=== PATIENT | male | born 1980 ===

== ENCOUNTER 2016-12-17 19:39 | Inpatient (IN) | payer MEDICAID, OTHER ==
[2016-12-17] MEDS ORDERED: Sodium Chloride 0.9% 1,000 ML IV STA (20:41)
--- NOTE | 2016-12-17 20:44 | ED PDOC ---
Addendum entered and electronically signed by Omaira Henriquez PA-C 22:05: Addendum Addendum: 12/17/16 22:04 COMP resulted with hyponatremia, IVF running. Hypokalemia as well. potassium administered and Mag ordered Original Note: HPI: SOB/CHF/COPD Time Seen by Provider: 12/17/16 20:10 Chief Complaint (Nursing): Shortness Of Breath Chief Complaint (Provider): SOB History Per: Patient Additional Complaint(s): 36 yo male, PMH of HIV who has been off his medications for 4-5 years now, presents to ED with multiple somatic complaints. Pt reports overall increased weakness, fatigue for the last week, with intermittent episodes of SOB x 5 days. Pt was noted to have 101 fever in triage and was unaware. Pt denies any abdominal pain, nausea, vomiting, cough or congestion. Pt admits to drinking alcohol daily as well. no Smoking or Drug use. Pt reports he last saw his PMD, Dr. Nugent, ~ 4-5 years ago, has not seen a doctor since Past Medical History Reviewed: Nursing Documentation, Vital Signs Vital Signs: Last Vital Signs Temp 101 F H 12/17/16 21:06 Pulse 110 H 12/17/16 19:49 Resp 16 12/17/16 19:49 BP 125/69 12/17/16 19:49 Pulse Ox 100 12/17/16 20:45 - Medical History PMH: HIV - Surgical History Surgical History: No Surg Hx - Family History Family History: States: Unknown Family Hx - Living Arrangements Living Arrangements: With Friends/Others - Social History Current smoker - smoking cessation education provided: No Alcohol: > 2 Drinks/Day Drugs: Denies - Allergies Allergies/Adverse Reactions: Allergies Allergy/AdvReac Type Severity Reaction Status Date / Time No Known Allergies Allergy Verified 12/17/16 19:49 Curb-65 Severity Score - CURB-65 Severity Score Confusion: No Bun >19mg/dl (>7mmol/L): No Respiratory Rate greater than/equal to 30: No Systolic BP <90 or Diastolic BP less than/equal 60mmHg: No Age >64: No Curb-65 Score: 0 Percentage 30-day mortality: 0.6% Wells Criteria for PE - Wells Criteria for Pulmonary Embolism Clinical Signs and Symptoms of DVT: Yes P.E is #1 Diagnosis, or Equally Likely: No Heart Rate >100: Yes Immobilization at least 3 days;Surgery previous 4 weeks: No Previous, objectively diagnosed PE or DVT: No Hemoptysis: No Malignancy w/treatment within 6 months, or palliative: No Total Score: 4.5 Review of Systems ROS Statement: Except As Marked, All Systems Reviewed And Found Negative Constitutional: Positive for: Fever, Weakness, Malaise Respiratory: Positive for: Shortness of Breath Physical Exam - Reviewed Nursing Documentation Reviewed: Yes Vital Signs Reviewed: Yes - Physical Exam Appears: Positive for: Well, Non-toxic, No Acute Distress Head Exam: Positive for: ATRAUMATIC, NORMAL INSPECTION, NORMOCEPHALIC Skin: Positive for: Normal Color, Warm, DRY Eye Exam: Positive for: EOMI, Normal appearance, PERRL ENT: Positive for: Normal ENT Inspection Neck: Positive for: Normal, Painless ROM Cardiovascular/Chest: Positive for: Regular Rate, Rhythm Respiratory: Positive for: CNT, Normal Breath Sounds Gastrointestinal/Abdominal: Positive for: Normal Exam, Bowel Sounds, Soft Back: Positive for: Normal Inspection Extremity: Positive for: Normal ROM Neurologic/Psych: Positive for: Alert, Oriented - Laboratory Results Result Diagrams: 12/17/16 21:15 - ECG O2 Sat by Pulse Oximetry: 100 Medical Decision Making Medical Decision Making: Pt placed on property assessment monitor, IV access established and diagnostics ordered Acetaminophen ordered for 101 temp. P: 110 CXR: NAD, as read by JESSICA UA resulted with WBC 24 CBC with WBC 10.3 Lactate resulted 2.6. Report ordered for 2 hours. COMP pending at 21:54 IV Rocephin ordered for UTI. Pt meets criteria for severe sepsis. Case discussed with ED MD, Dr. Napoles, who agrees with admission at this time. Case discussed with hospitalist, Dr. Marinelli, who presented to see and evaluate Pt for admission. Disposition - Clinical Impression Clinical Impression: Urinary tract infection, Severe sepsis - Patient ED Disposition Is Patient to be Admitted: Yes - Disposition Disposition Time: 21:57 Condition: STABLE - POA Present On Arrival: None
[2016-12-17 21:14] LABS: RBC URINE 7 /hpf (0-3); URINE BACTERIA RARE (<OCC); URINE BILIRUBIN NEGATIVE (NEGATIVE); URINE BLOOD SMALL (NEGATIVE); URINE COLOR AMBER (YELLOW); URINE GLUCOSE (UA) NEG (Normal); URINE KETONE 20 mg/dL (NEGATIVE); URINE LEUKOCYTE ESTERASE NEG Leu/uL (Negative); URINE PROTEIN 100 mg/dL (NEGATIVE); WBC URINE 24 /hpf (0-5)
[2016-12-17 21:26] LABS: VENOUS BLOOD GAS PCO2 46 mmHg (40-60)
[2016-12-17 21:32] LABS: BASO % 0.2 % (0.0-2.0); EOS % 0.5 % (0.0-4.0); HEMATOCRIT 39.3 % (35.0-51.0); LYMPH # 1.6 K/uL (1.0-4.3); LYMPH % 15.2 % (20.0-40.0); MEAN CELL VOLUME 94.2 fl (80.0-94.0); MEAN CORPUSCULAR HEMOGLOBIN 32.3 pg (27.0-31.0); MEAN CORPUSCULAR HGB CONC 34.2 g/dL (33.0-37.0); MEAN PLATELET VOLUME 8.2 fl (7.2-11.7); MONO % 9.8 % (0.0-10.0); NEUT # 7.6 K/uL (1.8-7.0); NEUT % 74.3 % (50.0-75.0); RED CELL DISTRIBUTION WIDTH 13.5 % (11.5-14.5); WHITE BLOOD COUNT 10.3 K/uL (4.8-10.8)
[2016-12-17 21:48] LABS: GLUCOSE,RANDOM 137 mg/dL (75-110); TOTAL PROTEIN 8.2 G/DL (6.3-8.2)
[2016-12-17 21:49] LABS: ALB/GLOB RATIO 0.8 (1.0-2.1); ALCOHOL SERUM < 10 mg/dl (0-10); ALKALINE PHOSPHATASE 101 U/L (38-126); ALT/SGPT 139 U/L (21-72); AST/SGOT 178 U/L (17-59); BILIRUBIN,TOTAL 1.2 mg/dl (0.2-1.3); BLOOD UREA NITROGEN 10 mg/dl (9-20); CALCIUM 6.1 mg/dL (8.4-10.2); CARBON DIOXIDE 27 mmol/L (22-30); CHLORIDE 85 mmol/L (98-107); GFR AFRICAN-AMERICAN > 60; POTASSIUM 3.3 MMOL/L (3.6-5.0)
[2016-12-17 21:52] LABS: SODIUM 120 mmol/l (132-148)
[2016-12-17] MEDS ORDERED: cefTRIAXone (Rocephin) 1 gm Inj ONE (22:00)
[2016-12-17] MEDS ORDERED: Potassium Chl 40 mEq in D5-NS 1,000 ML IV SCH (22:15)
[2016-12-17] MEDS ORDERED: Sodium Chloride 0.9% 1,000 ML IV SCH (22:15)
[2016-12-17] MEDS ORDERED: Sodium Chloride 0.9% 50 ML IV ONE (23:03)
[2016-12-17] MEDS ORDERED: Iodixanol 320 MG/ML 100 ML BOTTLE IV ONE (23:03)
--- NOTE | 2016-12-17 23:14 | CP.PCM.HP ---
History of Present Illness - History of Present Illness History of Present Illness: CC: suprapubic discomfort, back pain, SOB, fatigue/malaise HPI: This is a 36 y/o male with MHx significant for HIV who is not on any medications x past 4-5 years who presents with several days of multiple complaints. He states he has had several days of suprapubic/abd pain, back pain , n/v, SOB, fatigue and malaise. Had also had a fever of 101 earlier today accompanied by chills. No other complaints. ROS: 14 systems reviewed, negative other than HPI MHx: HIV+, not on medications SHx: None Allergies: NKDA Medications: None Family Hx: No relevant family hx Social hx: Lives by himself, drinks 5 drinks almost daily (last drink about 5-6 days ago), denies tobacco or other drugs Present on Admission - Present on Admission Any Indicators Present on Admission: No Past Patient History - Past Social History Alcohol: > 2 Drinks/Day Drugs: Denies - CARDIAC Hx Hypertension: Yes - PULMONARY Hx Respiratory Disorders: No - HEMATOLOGICAL/ONCOLOGICAL Hx Human Immunodeficiency Virus (HIV): Yes - PSYCHIATRIC Hx Anxiety: Yes Hx Substance Use: Yes - ANESTHESIA Hx Anesthesia: No Meds Allergies/Adverse Reactions: Allergies Allergy/AdvReac Type Severity Reaction Status Date / Time No Known Allergies Allergy Verified 12/17/16 19:49 Physical Exam - Constitutional Appears: No Acute Distress - Head Exam Head Exam: ATRAUMATIC, NORMOCEPHALIC - Eye Exam Eye Exam: EOMI, PERRL - ENT Exam ENT Exam: Mucous Membranes Dry - Neck Exam Neck exam: Positive for: Full Rom - Respiratory Exam Respiratory Exam: Clear to Auscultation Bilateral, NORMAL BREATHING PATTERN - Cardiovascular Exam Cardiovascular Exam: Tachycardia, +S1, +S2 - GI/Abdominal Exam GI & Abdominal Exam: Normal Bowel Sounds, Soft, Tenderness Additional comments: mild suprapubic tenderness - Extremities Exam Extremities exam: Positive for: full ROM, pedal edema Additional comments: LLE with mild edema and some TTP - Neurological Exam Neurological exam: Alert, CN II-XII Intact, Oriented x3 - Psychiatric Exam Psychiatric exam: Normal Affect, Normal Mood - Skin Skin Exam: Dry, Warm Results - Vital Signs Recent Vital Signs: Last Vital Signs Temp 100.7 F H 12/17/16 23:00 Pulse 98 H 12/17/16 23:00 Resp 20 12/17/16 23:00 BP 119/72 12/17/16 23:00 Pulse Ox 98 12/17/16 23:00 - Labs Result Diagrams: 12/17/16 21:15 12/17/16 21:15 Labs: Laboratory Results - last 24 hr 12/17/16 22:04 Magnesium 1.9 - EKG Data EKG Interpreted by: Myself EKG shows normal: Sinus rhythm Rate: Tachycardia - EKG Data EKG comments: IVCD with RBBB pattern; Prolonged QTc - Imaging and Cardiology CT scan - chest Status: Pending Chest x-ray Status: Image reviewed by me (No obvious findings) Assessment & Plan (1) UTI (urinary tract infection) Assessment and Plan: 36 y/o male who is HIV+ (off medications) who comes in with multiple constitutional symptoms as well as UTI/Sepsis, hypo-Na, and SOB/LE Edema. 1) Sepsis/UTI -Admit tele -Repeat lactiate -Continue IVF -Cont Ceftriaxone -Tylenol for fevers -f/u cultures 2) Hyponatremia -- unclear etiology or duration; possibly 2/2 HIV -Continue hydration with NS and repeat BMP in AM -Serum and urine Osms, ULytes, and TSH to start w/u 3) SOB/LE edema/tachycardia -- D dimer positive, getting CT Angio to r/o PE 4) DVT PPx -- SQ Lovenox for now Status: Acute (2) Sepsis Status: Acute (3) Hyponatremia Status: Acute (4) SOB (shortness of breath) Status: Acute (5) HIV (human immunodeficiency virus infection) Status: Acute (6) DVT prophylaxis Status: Acute
[2016-12-18 06:39] LABS: BLOOD UREA NITROGEN 8 mg/dl (9-20); CARBON DIOXIDE 26 mmol/L (22-30); CHLORIDE 90 mmol/L (98-107); GFR AFRICAN-AMERICAN > 60; GLUCOSE,RANDOM 147 mg/dL (75-110); POTASSIUM 3.3 MMOL/L (3.6-5.0); SODIUM 124 mmol/l (132-148)
[2016-12-18 06:46] LABS: BASO % 0.1 % (0.0-2.0); CALCIUM 5.6 mg/dL (8.4-10.2); EOS # 0.1 K/uL (0.0-0.7); EOS % 0.6 % (0.0-4.0); HEMATOCRIT 34.6 % (35.0-51.0); LYMPH # 1.4 K/uL (1.0-4.3); LYMPH % 15.5 % (20.0-40.0); MEAN CORPUSCULAR HGB CONC 35.1 g/dL (33.0-37.0); MEAN PLATELET VOLUME 8.2 fl (7.2-11.7); MONO # 0.8 K/uL (0.0-0.8); MONO % 8.8 % (0.0-10.0); NRBC % 0.1 % (0.0-0.0); RED CELL DISTRIBUTION WIDTH 13.5 % (11.5-14.5); WHITE BLOOD COUNT 9.3 K/uL (4.8-10.8)
[2016-12-18] MEDS ORDERED: Calcium Gluconate 4.65 mEq/10 ml Inj IV ONE (07:49)
[2016-12-18] MEDS ORDERED: Iohexol 240 (50 ml) PO ONE (07:54)
[2016-12-18] MEDS ORDERED: Potassium CL 10 MEQ/50 ML 50 ML IVPB SCH ×2 (08:00→09:14)
[2016-12-18] MEDS ORDERED: Sodium Chloride 0.9% 1,000 ML IV SCH (08:03)
[2016-12-18 08:33] LABS: ALB/GLOB RATIO 0.8 (1.0-2.1); BILIRUBIN,TOTAL 0.8 mg/dl (0.2-1.3); MAGNESIUM 1.8 MG/DL (1.6-2.3); PHOSPHOROUS 1.4 mg/dl (2.5-4.5); TOTAL PROTEIN 6.8 G/DL (6.3-8.2)
--- NOTE | 2016-12-18 08:42 | CT ---
PROCEDURE: Scribe prelim HISTORY: elevated dimer, SOB COMPARISON: Chest x-ray same day TECHNIQUE: Axial computed tomography images were obtained of the chest in the pulmonary arterial phase of enhancement. Coronal and sagittal reformatted images were created and reviewed. Intravenous contrast dose: 100 cc Radiation dose: Total exam DLP = 384 mGy-cm. FINDINGS: PULMONARY ARTERIES: Unremarkable. No pulmonary embolism. AORTA: No acute findings. No thoracic aortic aneurysm. LUNGS: Unremarkable. No nodule, mass or pulmonary consolidation. PLEURAL SPACES: Unremarkable. No effusion or pneuomothorax. HEART: Unremarkable. No cardiomegaly. No significant pericardial effusion. LYMPH NODES: No lymphadenopathy. BONES, CHEST WALL: Unremarkable. No fracture or destructive lesion OTHER FINDINGS: Images of the upper abdomen reveal evidence of moderate inflammatory change in phlegmon adjacent to the body and tail of the pancreas with some additional phlegmon extending into the left anterior para renal space and adjacent to the spleen. Remainder the pancreas is not identified on the images. Findings are consistent with moderate pancreatitis without pseudocyst formation. Moderate fatty infiltration of the liver is noted. No perihepatic collections are seen. No intrahepatic ductal dilatation is seen. Small hiatal hernia is appreciated. IMPRESSION: No CT scan evidence of pulmonary embolism. No evidence of focal infiltrate or pleural effusion. Moderate pancreatitis although incompletely evaluated on this examination. This agrees with preliminary report.
[2016-12-18] MEDS ORDERED: Thiamine 100 mg/ml Inj IV SCH (09:00)
[2016-12-18] MEDS ORDERED: Influenza Vaccine(5yr & older) 0.5 ML/45 MCG IM ONE (09:00)
[2016-12-18] MEDS ORDERED: Pneumococcal 23-Valent Vaccine IM ONE (09:00)
--- NOTE | 2016-12-18 09:11 | CP.PCM.PN ---
Subjective - Date & Time of Evaluation Date of Evaluation: 12/18/16 Time of Evaluation: 09:00 - Subjective Subjective: Pt is febrile + epigastric pain radiating to the back denies CP no SOB at present no nausea nor vomiting no dysuria no diarrhea no headache no urethral discharge Objective - Vital Signs/Intake and Output Vital Signs (last 24 hours): Temp Pulse Resp BP Pulse Ox 100.1 F H 102 H 20 119/73 98 12/18/16 05:00 12/18/16 05:00 12/18/16 05:00 12/18/16 05:00 12/18/16 05:00 - Medications Medications: Current Medications Acetaminophen (Tylenol 325mg Tab) 650 mg PO Q6 PRN PRN Reason: Fever >100.4 F Calcium Gluconate (Calcium Gluconate) 4.6 meq IV ONCE ONE Stop: 12/18/16 07:50 Enoxaparin Sodium (Lovenox) 40 mg SC DAILY [facility] PRN Reason: Protocol Potassium Chloride (Potassium Cl 10meq/50ml Sterile Water) 50 mls @ 50 mls/hr IVPB Q1 [facility] Stop: 12/18/16 10:59 Piperacillin Sod/Tazobactam (Sod 3.375 gm/ Sodium Chloride) 100 mls @ 100 mls/ hr IVPB Q6 [facility] Folic Acid 1 mg/ Sodium (Chloride) 100.2 mls @ 60 mls/hr IVPB DAILY [facility] Sodium Chloride (Sodium Chloride 0.9%) 1,000 mls @ 200 mls/hr IV .Q5H [facility] Stop: 12/19/16 00:09 Pantoprazole Sodium (Protonix Inj) 40 mg IVP DAILY [facility] Thiamine HCl (Vitamin B1 Inj) 100 mg IV DAILY [facility] - Labs Labs: 12/18/16 06:02 12/18/16 06:02 - Constitutional Appears: Non-toxic, No Acute Distress - Head Exam Head Exam: ATRAUMATIC, NORMAL INSPECTION, NORMOCEPHALIC - Eye Exam Eye Exam: EOMI, Normal appearance, PERRL Pupil Exam: NORMAL ACCOMODATION - ENT Exam ENT Exam: Mucous Membranes Dry, Normal External Ear Exam Additional comments: no oral thrush - Neck Exam Neck Exam: Full ROM. absent: Meningismus - Respiratory Exam Respiratory Exam: NORMAL BREATHING PATTERN. absent: Rales, Wheezes, Respiratory Distress - Cardiovascular Exam Cardiovascular Exam: REGULAR RHYTHM, +S1, +S2 - GI/Abdominal Exam GI & Abdominal Exam: Distended (sl distended), Soft, Tenderness, Normal Bowel Sounds - Back Exam Back Exam: Full ROM. absent: CVA tenderness (L), CVA tenderness (R), paraspinal tenderness, vertebral tenderness - Neurological Exam Neurological Exam: Alert, Awake, CN II-XII Intact, Oriented x3 Neuro motor strength exam: Left Upper Extremity: 5, Right Upper Extremity: 5, Left Lower Extremity: 5, Right Lower Extremity: 5 - Psychiatric Exam Psychiatric exam: Normal Affect, Normal Mood - Skin Skin Exam: Dry, Normal Color, Warm Assessment and Plan (1) Pancreatitis, alcoholic, acute Status: Acute (2) Sepsis Status: Suspected (3) Hyponatremia Status: Acute (4) HIV (human immunodeficiency virus infection) Status: Chronic (5) Fever Status: Acute (6) Hypokalemia Status: Acute (7) Alcohol abuse Status: Chronic (8) DVT prophylaxis Status: Acute - Assessment and Plan (Free Text) Assessment: 36 y/o gent with hx of HIV + not on HAART , hx of Alcohol abuse came in because of fever, abd pain, nausea /vomiting. (1) Pancreatitis, alcoholic, acute Status: Acute Pt came in with abd pain mostly epigastric radiating to the back, hx of Alcoholsim CT scan of chest showed : Pancreatitis changes, no necrosis nor pseudocyst NPO Pain mgt with IV Morphine IVF hydration GI consult: Dr Minor CT of abd check Lipase (2) Sepsis Status: Suspected Pt has fever , abd pain and elevated Lactate empirically start IV Zosyn will consult ID: Dr Leyva (3) Hyponatremia Status: Acute ? sec to HIV Setum and Urine Osm, urine lytes (4) HIV (human immunodeficiency virus infection) Status: Chronic pt states that when he was on HAART 3 yrs ago , his viral load was undetectable however he stopped all his meds and never followed up at [facility] HIV clinic check CD4 Ct and Viral load (5) Fever Status: Acute ? etiology sec to Pancreatitis, HIV vs UTI Blood c/s, Urine c/s empirically start IV Zosyn UA shows WBC 24 ? UTI (6) Alcohol Abuse last drink was 6 days ago no signs of withdrawal Ativan prn start IV Thiamine and FA (7) Hypokalemia, Hypophosphatemia Status: Acute Kphos, Kcl runs (8) DVT prophylaxis Status: Acute Lovenox
[2016-12-18] MEDS: Enoxaparin 40 mg Syringe SC SCH (09:14)
[2016-12-18] MEDS ORDERED: Potassium Phosphate 15 MMOLE in Dextrose 5% In Water 250 ML IV ONE (09:15)
[2016-12-18] MEDS ORDERED: Piperacillin/Tazobact 3.375 GM in Sodium Chloride 0.9% 100 ML IVPB SCH (10:00)
[2016-12-18] MEDS ORDERED: Calcium Gluconate 4.6 MEQ in Sodium Chloride 0.9% 100 ML IV ONE (10:15)
[2016-12-18] MEDS: Sodium Chloride 0.9% 1,000 ML IV SCH ×2 (10:21→21:29)
--- NOTE | 2016-12-18 10:30 | RAD ---
HISTORY: CP COMPARISON: No prior. TECHNIQUE: Chest PA and lateral FINDINGS: LUNGS: No active pulmonary disease. PLEURA: No significant pleural effusion identified. No pneumothorax apparent. CARDIOVASCULAR: Normal. OSSEOUS STRUCTURES: No significant abnormalities. VISUALIZED UPPER ABDOMEN: Normal. OTHER FINDINGS: None. IMPRESSION: No active disease.
--- NOTE | 2016-12-18 11:44 | CP.PCM.CON ---
<Dionna Meza - Last Filed: 12/18/16 14:17> History of Present Illness - History of Present Illness History of Present Illness: Gastroenterology Fellow/PGY4 Consult Note 36 year old male with history of HIV not on HAART therapy presenting with weakness and shortness of breath. Patient notes epigastric pain for one week with radiation to back, present pain scale 5/10. On Tuesday, the pain was 9/10 with loss of appetite and associated nausea, bloating, and vomiting four times a day of clear liquid. Admits to watery diarrhea twice a day a week for a week that last occurred four days ago. Since the pain onset he had one formed stool and no further bowel habit for the last three days that he attributes to not eating for a week due to the epigastric pain. He notes generalized malaise for one month. Notes shortness of breath and chills for one week. Denies indigestion, heartburn, acid reflux, constipation, melena, hematochezia, sick contacts, recent travel, recent antibiotics, confusion, or weight loss. Admits to AKILI during [place] that he took a friend's antibiotics for two weeks. Since this time he hasn't felt himself with generalized weakness. He has not followed with his PCP or infectious disease in a few years due to insurance. States previous HIV for thirteen years that he states CD4 count was previously normal. No prior EGD or colonoscopy. He had eggs for breakfast prior to NPO order and notes exacerbation of epigastric pain and denies vomiting. 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 Surgery- none Review of Systems - Review of Systems Review of Systems: A 12-point review of systems negative except for as above Past Patient History - Past Medical History & Family History Past Medical History?: Yes - Past Social History Smoking Status: Former Smoker - CARDIAC Hx Hypertension: Yes - PULMONARY Hx Respiratory Disorders: No - HEMATOLOGICAL/ONCOLOGICAL Hx Human Immunodeficiency Virus (HIV): Yes - MUSCULOSKELETAL/RHEUMATOLOGICAL Hx Falls: No - PSYCHIATRIC Hx Substance Use: Yes - ANESTHESIA Hx Anesthesia: No Meds Allergies/Adverse Reactions: Allergies Allergy/AdvReac Type Severity Reaction Status Date / Time No Known Allergies Allergy Verified 12/17/16 19:49 - Medications Medications: Current Medications Acetaminophen (Tylenol 325mg Tab) 650 mg PO Q6 PRN PRN Reason: Fever >100.4 F Last Admin: 12/18/16 09:13 Dose: 650 mg Enoxaparin Sodium (Lovenox) 40 mg SC DAILY [facility] PRN Reason: Protocol Last Admin: 12/18/16 09:14 Dose: 40 mg Piperacillin Sod/Tazobactam (Sod 3.375 gm/ Sodium Chloride) 100 mls @ 100 mls/ hr IVPB Q6 [facility] Last Admin: 12/18/16 10:23 Dose: 100 mls/hr Folic Acid 1 mg/ Sodium (Chloride) 100.2 mls @ 60 mls/hr IVPB DAILY [facility] Sodium Chloride (Sodium Chloride 0.9%) 1,000 mls @ 200 mls/hr IV .Q5H [facility] Stop: 12/19/16 00:09 Last Admin: 12/18/16 10:21 Dose: 200 mls/hr Potassium Phosphate 15 mmole/ (Dextrose) 255 mls @ 84 mls/hr IV .Q3H3M [facility] Stop: 12/18/16 12:17 Thiamine HCl 100 mg/ Sodium (Chloride) 101 mls @ 101 mls/hr IV DAILY [facility] Morphine Sulfate (Morphine) 2 mg IVP Q4 PRN PRN Reason: Pain, moderate (4-7) Pantoprazole Sodium (Protonix Inj) 40 mg IVP DAILY [facility] Last Admin: 12/18/16 11:13 Dose: 40 mg Physical Exam - Constitutional Appears: Non-toxic, No Acute Distress - Head Exam Head Exam: ATRAUMATIC, NORMOCEPHALIC - Eye Exam Eye Exam: EOMI, PERRL Pupil Exam: PERRL. absent: Miosis, Mydriatic - ENT Exam ENT Exam: Mucous Membranes Moist, Normal Oropharynx - Neck Exam Neck exam: Positive for: Full Rom, Normal Inspection - Respiratory Exam Respiratory Exam: Clear to Auscultation Bilateral. absent: Rales, Rhonchi, Wheezes - Cardiovascular Exam Cardiovascular Exam: RRR, +S1, +S2. absent: Gallop, Rubs - GI/Abdominal Exam GI & Abdominal Exam: Normal Bowel Sounds, Organomegaly, Soft, Tenderness. absent: Distended, Firm, Guarding, Rebound, Rigid Additional comments: epigastric tenderness to palpation, hepatosplenomegaly - Extremities Exam Extremities exam: Positive for: full ROM Additional comments: 1+LLE edema - Neurological Exam Neurological exam: Alert, Oriented x3 - Psychiatric Exam Psychiatric exam: Normal Affect, Normal Mood - Skin Skin Exam: Dry, Intact, Normal Color, Warm Results - Vital Signs Recent Vital Signs: Last Vital Signs Temp 101.6 F H 12/18/16 09:22 Pulse 97 H 12/18/16 09:22 Resp 20 12/18/16 09:22 BP 121/75 12/18/16 09:22 Pulse Ox 97 12/18/16 09:22 - Labs Result Diagrams: 12/18/16 06:02 12/18/16 06:02 Labs: Laboratory Results - last 24 hr 12/17/16 12/18/16 12/18/16 22:04 01:14 06:02 WBC 9.3 RBC 3.68 L Hgb 12.1 Hct 34.6 L MCV 94.0 MCH 33.0 H MCHC 35.1 RDW 13.5 Plt Count 244 MPV 8.2 Neut % (Auto) 75.0 Lymph % (Auto) 15.5 L Pope % (Auto) 8.8 Eos % (Auto) 0.6 Baso % (Auto) 0.1 Neut # 7.0 Lymph # 1.4 Pope # 0.8 Eos # 0.1 Baso # 0.0 Sodium 124 L Potassium 3.3 L Chloride 90 L Carbon Dioxide 26 Anion Gap 11 BUN 8 L Creatinine 0.7 L Est GFR ( Amer) > 60 Est GFR (Non-Af Amer) > 60 Random Glucose 147 H Lactic Acid 0.7 Calcium 5.6 L* Phosphorus Magnesium 1.9 Total Bilirubin Direct Bilirubin AST ALT Alkaline Phosphatase Lactate Dehydrogenase Total Protein Albumin Globulin Albumin/Globulin Ratio Lipase 12/18/16 07:45 WBC RBC Hgb Hct MCV MCH MCHC RDW Plt Count MPV Neut % (Auto) Lymph % (Auto) Pope % (Auto) Eos % (Auto) Baso % (Auto) Neut # Lymph # Pope # Eos # Baso # Sodium Potassium Chloride Carbon Dioxide Anion Gap BUN Creatinine Est GFR ( Amer) Est GFR (Non-Af Amer) Random Glucose Lactic Acid Calcium Phosphorus 1.4 L Magnesium 1.8 Total Bilirubin 0.8 Direct Bilirubin 0.4 AST 126 H D ALT 114 H Alkaline Phosphatase 80 Lactate Dehydrogenase 1605 H Total Protein 6.8 Albumin 3.0 L Globulin 3.8 Albumin/Globulin Ratio 0.8 L Lipase 571 H Assessment & Plan - Assessment and Plan (Free Text) Assessment: 36 year old male with history of HIV with medication and follow up noncompliance presenting with weakness, epigastric pain, and shortness of breath. CT PE protocol negative for pulmonary embolism but showing concern for pancreatic body and tail inflammation. No prior EGD or colonoscopy. Sepsis 2/2 UTI Pancreatitis Diarrhea Transaminitis Generalized weakness HIV Plan: > abdominal U/S-no gallstones, biliary dilatations >pending Hepatitis panel >pending stool infectious workup: C diff, stool culture, Cryptosporidium, Giardia, O&P >pending blood and urine cultures >ordered PT/INR >elevated dimer, LDH, PE ruled out, splenomegaly >ordered Doppler U/S >daily LFTs >aggressive IVFs >NPO >supportive care: pain control, antiemetics >pending CT A/P >primary team managing dyselectrolytemia >pending HIV, CD4 count >Infectious disease consult- follow up recommendations <Donna Minor MD - Last Filed: 12/19/16 10:20> Meds - Medications Medications: Current Medications Acetaminophen (Tylenol 325mg Tab) 650 mg PO Q6 PRN PRN Reason: Fever >100.4 F Last Admin: 12/18/16 09:13 Dose: 650 mg Enoxaparin Sodium (Lovenox) 40 mg SC DAILY [facility] PRN Reason: Protocol Last Admin: 12/18/16 09:14 Dose: 40 mg Folic Acid 1 mg/ Sodium (Chloride) 100.2 mls @ 60 mls/hr IVPB DAILY [facility] Last Admin: 12/19/16 10:05 Dose: 60 mls/hr Thiamine HCl 100 mg/ Sodium (Chloride) 101 mls @ 101 mls/hr IV DAILY [facility] Last Admin: 12/19/16 10:05 Dose: 101 mls/hr Morphine Sulfate (Morphine) 2 mg IVP Q4 PRN PRN Reason: Pain, moderate (4-7) Pantoprazole Sodium (Protonix Inj) 40 mg IVP DAILY [facility] Last Admin: 12/19/16 10:06 Dose: 40 mg Results - Vital Signs Recent Vital Signs: Last Vital Signs Temp 99.5 F 12/19/16 05:02 Pulse 93 H 12/19/16 05:02 Resp 20 12/19/16 05:02 BP 126/80 12/19/16 05:02 Pulse Ox 97 12/19/16 05:02 - Labs Result Diagrams: 12/19/16 08:00 12/19/16 08:00 Labs: Laboratory Results - last 24 hr 12/18/16 12/19/16 15:50 08:00 WBC 14.8 H D RBC 3.76 L Hgb 12.1 Hct 35.8 MCV 95.2 H MCH 32.2 H MCHC 33.8 RDW 13.7 Plt Count 338 MPV 7.3 Neut % (Auto) 79.1 H Lymph % (Auto) 12.4 L Pope % (Auto) 7.4 Eos % (Auto) 1.0 Baso % (Auto) 0.1 Neut # 11.7 H Lymph # 1.8 Pope # 1.1 H Eos # 0.1 Baso # 0.0 PT 13.3 H INR 1.28 H Sodium 131 L Potassium 3.9 Chloride 98 Carbon Dioxide 23 Anion Gap 14 BUN 6 L Creatinine 0.7 L Est GFR ( Amer) > 60 Est GFR (Non-Af Amer) > 60 Random Glucose 100 Calcium 6.6 L Phosphorus 2.2 L Total Bilirubin 0.8 AST 103 H ALT 104 H Alkaline Phosphatase 99 Total Protein 7.5 Albumin 3.3 L Globulin 4.2 H Albumin/Globulin Ratio 0.8 L Attending/Attestation - Attestation I have personally seen and examined this patient.: Yes I have fully participated in the care of the patient.: Yes I have reviewed all pertinent clinical information: Yes Notes (Text): 12/19/16 10:16 patient seen and examined with GI fellow yesterday on rounds. The H & P reflects findings of 12/18/16. Essentially this is a 36 year old male with history of HIV with medication and follow up noncompliance presenting with weakness, epigastric pain, and shortness of breath. CT PE protocol negative for pulmonary embolism but showing concern for pancreatic body and tail inflammation. No prior EGD or colonoscopy. Sonogram negative for biliary obstruction. Pending stool infectious work up. Pending dedicated CT pancreatic protocol with IV contrast. IVF and supportive care. Needs to establish care for HIV treatment
--- NOTE | 2016-12-18 13:14 | US ---
HISTORY: pancreatitis COMPARISON: CT scan yesterday TECHNIQUE: Sonographic evaluation of the abdomen. FINDINGS: LIVER: Measures 20 cm. Diffuse increased echogenicity of the liver parenchyma. No mass. No intrahepatic bile duct dilatation. GALLBLADDER: Slightly contracted but without gallstones or wall thickening. No pericholecystic fluid. COMMON BILE DUCT: Measures 4 mm. No stones. No dilatation. PANCREAS: Head of the pancreas is obscured by bowel gas. There appears to be enlargement and heterogeneous echogenicity involving the body of the pancreas. Tail of the pancreas was also obscured by bowel gas and better appreciated on the CT scan performed yesterday. Small amount of peripancreatic fluid extending towards the left side of the abdomen is suspected. RIGHT KIDNEY: Measures 12cm. Normal echogenicity. No calculus, mass, or hydronephrosis. LEFT KIDNEY: Measures 14cm. Normal echogenicity. No calculus, mass, or hydronephrosis. SPLEEN: Mildly enlarged measuring 13.4 centimeters in length. No focal splenic mass is noted. AORTA: No aneurysmal dilatation. IVC: Unremarkable. OTHER FINDINGS: None. IMPRESSION: Findings consistent with pancreatitis with enlarged pancreas although the pancreas is limited in its evaluation due to overlying bowel gas. Probable mild peripancreatic inflammatory changes extending towards the left side of the abdomen. Enlarged fatty liver. No evidence of gallstones or bile duct dilatation.
--- NOTE | 2016-12-18 13:44 | CP.PCM.CON ---
History of Present Illness - History of Present Illness History of Present Illness: Infectious Disease Consultation Note- Asked to see this patient at the request of for fever and pancreatitis. HPI- Pt. is a 36 y/o male with pmh of HIV not on HAART, ETOH abuse who was admitted with c/o several days of not feeling well including feeling weak and abdominal pain mainly in midepigastric region and nausea and vomiting, denies any diarrhea. denies any cough, denies any sob, denies any chest pain. denies any dysurea. Pt. states he has had this kind of abdominal pain in the past and he thinks it' s from his pancreas inflammation secondary to his ETOh use. he denies any change in his diet, denies any recent travel. He states he feels better since admission and no vomiting today. He also sattes he does not see HIV doctor and is not on any HAART meds and has been noncompliant with this. MHx: HIV+, not on medications SHx: None Allergies: NKDA Medications: None Family Hx: No relevant family hx Social hx: Lives by himself, drinks 5 drinks almost daily (last drink about 5-6 days ago), denies tobacco or other drugs Review of Systems - Review of Systems Review of Systems: see HPI please. Past Patient History - Past Medical History & Family History Past Medical History?: Yes - Past Social History Smoking Status: Former Smoker Alcohol: > 2 Drinks/Day Drugs: Denies Home Situation {Lives}: Alone - CARDIAC Hx Cardiac Disorders: No - PULMONARY Hx Respiratory Disorders: No - NEUROLOGICAL Hx Neurological Disorder: No - HEENT Hx HEENT Problems: No - RENAL Hx Chronic Kidney Disease: No - ENDOCRINE/METABOLIC Hx Endocrine Disorders: No - HEMATOLOGICAL/ONCOLOGICAL Hx Human Immunodeficiency Virus (HIV): Yes - MUSCULOSKELETAL/RHEUMATOLOGICAL Hx Falls: No - PSYCHIATRIC Hx Substance Use: Yes - ANESTHESIA Hx Anesthesia: No Meds Allergies/Adverse Reactions: Allergies Allergy/AdvReac Type Severity Reaction Status Date / Time No Known Allergies Allergy Verified 12/17/16 19:49 - Medications Medications: Current Medications Acetaminophen (Tylenol 325mg Tab) 650 mg PO Q6 PRN PRN Reason: Fever >100.4 F Last Admin: 12/18/16 09:13 Dose: 650 mg Enoxaparin Sodium (Lovenox) 40 mg SC DAILY TREY PRN Reason: Protocol Last Admin: 12/18/16 09:14 Dose: 40 mg Piperacillin Sod/Tazobactam (Sod 3.375 gm/ Sodium Chloride) 100 mls @ 100 mls/ hr IVPB Q6 [facility] Last Admin: 12/18/16 10:23 Dose: 100 mls/hr Folic Acid 1 mg/ Sodium (Chloride) 100.2 mls @ 60 mls/hr IVPB DAILY [facility] Last Admin: 12/18/16 12:28 Dose: 60 mls/hr Sodium Chloride (Sodium Chloride 0.9%) 1,000 mls @ 200 mls/hr IV .Q5H [facility] Stop: 12/19/16 00:09 Last Admin: 12/18/16 10:21 Dose: 200 mls/hr Thiamine HCl 100 mg/ Sodium (Chloride) 101 mls @ 101 mls/hr IV DAILY [facility] Morphine Sulfate (Morphine) 2 mg IVP Q4 PRN PRN Reason: Pain, moderate (4-7) Pantoprazole Sodium (Protonix Inj) 40 mg IVP DAILY [facility] Last Admin: 12/18/16 11:13 Dose: 40 mg Physical Exam - Constitutional Appears: Non-toxic, No Acute Distress - Head Exam Head Exam: ATRAUMATIC - Eye Exam Eye Exam: EOMI, PERRL - ENT Exam Additional comments: dry oral mucosa - Neck Exam Neck exam: Positive for: Full Rom - Respiratory Exam Respiratory Exam: Clear to Auscultation Bilateral, NORMAL BREATHING PATTERN - Cardiovascular Exam Cardiovascular Exam: RRR, +S1, +S2 - GI/Abdominal Exam Additional comments: somewhat distended, + BS No tenderness to palpation No guarding, no rebound No CVA tenderness b/l - Extremities Exam Extremities exam: Positive for: normal inspection - Neurological Exam Neurological exam: Alert, Oriented x3 Results - Vital Signs Recent Vital Signs: Last Vital Signs Temp 98.3 F 12/18/16 10:13 Pulse 97 H 12/18/16 09:22 Resp 20 12/18/16 09:22 BP 121/75 12/18/16 09:22 Pulse Ox 97 12/18/16 09:22 - Labs Result Diagrams: 12/18/16 06:02 12/18/16 06:02 Labs: Laboratory Results - last 24 hr 12/17/16 12/18/16 12/18/16 22:04 01:14 06:02 WBC 9.3 RBC 3.68 L Hgb 12.1 Hct 34.6 L MCV 94.0 MCH 33.0 H MCHC 35.1 RDW 13.5 Plt Count 244 MPV 8.2 Neut % (Auto) 75.0 Lymph % (Auto) 15.5 L [place] % (Auto) 8.8 Eos % (Auto) 0.6 Baso % (Auto) 0.1 Neut # 7.0 Lymph # 1.4 [place] # 0.8 Eos # 0.1 Baso # 0.0 Sodium 124 L Potassium 3.3 L Chloride 90 L Carbon Dioxide 26 Anion Gap 11 BUN 8 L Creatinine 0.7 L Est GFR ( Amer) > 60 Est GFR (Non-Af Amer) > 60 Random Glucose 147 H Lactic Acid 0.7 Calcium 5.6 L* Phosphorus Magnesium 1.9 Total Bilirubin Direct Bilirubin AST ALT Alkaline Phosphatase Lactate Dehydrogenase Total Protein Albumin Globulin Albumin/Globulin Ratio Lipase 12/18/16 07:45 WBC RBC Hgb Hct MCV MCH MCHC RDW Plt Count MPV Neut % (Auto) Lymph % (Auto) [place] % (Auto) Eos % (Auto) Baso % (Auto) Neut # Lymph # [place] # Eos # Baso # Sodium Potassium Chloride Carbon Dioxide Anion Gap BUN Creatinine Est GFR ( Amer) Est GFR (Non-Af Amer) Random Glucose Lactic Acid Calcium Phosphorus 1.4 L Magnesium 1.8 Total Bilirubin 0.8 Direct Bilirubin 0.4 AST 126 H D ALT 114 H Alkaline Phosphatase 80 Lactate Dehydrogenase 1605 H Total Protein 6.8 Albumin 3.0 L Globulin 3.8 Albumin/Globulin Ratio 0.8 L Lipase 571 H Laboratory Results - last 72 hr 12/17/16 12/17/16 12/17/16 06:02 20:50 21:15 WBC 10.3 RBC 4.17 L Hgb 13.5 Hct 39.3 MCV 94.2 H MCH 32.3 H MCHC 34.2 RDW 13.5 Plt Count 260 MPV 8.2 Neut % (Auto) 74.3 Lymph % (Auto) 15.2 L [place] % (Auto) 9.8 Eos % (Auto) 0.5 Baso % (Auto) 0.2 Neut # 7.6 H Lymph # 1.6 [place] # 1.0 H Eos # 0.0 Baso # 0.0 D-Dimer, Quantitative 13.10 H pO2 VBG pH VBG pCO2 VBG HCO3 VBG Total CO2 VBG O2 Sat (Calc) VBG Base Excess VBG Potassium Glucose Lactate FiO2 Sodium 120 L* Potassium 3.3 L Chloride 85 L Carbon Dioxide 27 Anion Gap 11 BUN 10 Creatinine 0.7 L Est GFR ( Amer) > 60 Est GFR (Non-Af Amer) > 60 Random Glucose 137 H Serum Osmolality 261 L Lactic Acid Calcium 6.1 L Phosphorus Magnesium Total Bilirubin 1.2 Direct Bilirubin AST 178 H ALT 139 H Alkaline Phosphatase 101 Lactate Dehydrogenase Troponin I 0.0130 Total Protein 8.2 Albumin 3.7 Globulin 4.5 H Albumin/Globulin Ratio 0.8 L Lipase TSH 3rd Generation 2.31 Venous Blood Potassium Urine Color Carmen Urine Clarity Slighty-cloudy Urine pH 6.0 Ur Specific [place] 1.019 Urine Protein 100 Urine Glucose (UA) Neg Urine Ketones 20 Urine Blood Small Urine Nitrate Negative Urine Bilirubin Negative Urine Urobilinogen 2.0 Ur Leukocyte Esterase Neg Urine RBC (Auto) 7 H Urine Microscopic WBC 24 H Ur Squamous Epith Cells < 1 Urine Bacteria Rare Urine Opiates Screen Negative Urine Methadone Screen Negative Ur Barbiturates Screen Negative Ur Phencyclidine Scrn Negative Ur Amphetamines Screen Negative U Benzodiazepines Scrn Negative U Oth Cocaine Metabols Negative U Cannabinoids Screen Negative Alcohol, Quantitative < 10 12/17/16 12/17/16 12/18/16 21:27 22:04 01:14 WBC RBC Hgb Hct MCV MCH MCHC RDW Plt Count MPV Neut % (Auto) Lymph % (Auto) [place] % (Auto) Eos % (Auto) Baso % (Auto) Neut # Lymph # [place] # Eos # Baso # D-Dimer, Quantitative pO2 28 L VBG pH 7.40 VBG pCO2 46 VBG HCO3 26.0 VBG Total CO2 29.9 H VBG O2 Sat (Calc) 55.6 VBG Base Excess 3.0 H VBG Potassium 3.0 L Glucose 136 H Lactate 2.6 H FiO2 21.0 Sodium 123.0 L Potassium Chloride 88.0 L Carbon Dioxide Anion Gap BUN Creatinine Est GFR ( Amer) Est GFR (Non-Af Amer) Random Glucose Serum Osmolality Lactic Acid 0.7 Calcium Phosphorus Magnesium 1.9 Total Bilirubin Direct Bilirubin AST ALT Alkaline Phosphatase Lactate Dehydrogenase Troponin I Total Protein Albumin Globulin Albumin/Globulin Ratio Lipase TSH 3rd Generation Venous Blood Potassium 3.0 L Urine Color Urine Clarity Urine pH Ur Specific [place] Urine Protein Urine Glucose (UA) Urine Ketones Urine Blood Urine Nitrate Urine Bilirubin Urine Urobilinogen Ur Leukocyte Esterase Urine RBC (Auto) Urine Microscopic WBC Ur Squamous Epith Cells Urine Bacteria Urine Opiates Screen Urine Methadone Screen Ur Barbiturates Screen Ur Phencyclidine Scrn Ur Amphetamines Screen U Benzodiazepines Scrn U Oth Cocaine Metabols U Cannabinoids Screen Alcohol, Quantitative 12/18/16 12/18/16 06:02 07:45 WBC 9.3 RBC 3.68 L Hgb 12.1 Hct 34.6 L MCV 94.0 MCH 33.0 H MCHC 35.1 RDW 13.5 Plt Count 244 MPV 8.2 Neut % (Auto) 75.0 Lymph % (Auto) 15.5 L [place] % (Auto) 8.8 Eos % (Auto) 0.6 Baso % (Auto) 0.1 Neut # 7.0 Lymph # 1.4 [place] # 0.8 Eos # 0.1 Baso # 0.0 D-Dimer, Quantitative pO2 VBG pH VBG pCO2 VBG HCO3 VBG Total CO2 VBG O2 Sat (Calc) VBG Base Excess VBG Potassium Glucose Lactate FiO2 Sodium 124 L Potassium 3.3 L Chloride 90 L Carbon Dioxide 26 Anion Gap 11 BUN 8 L Creatinine 0.7 L Est GFR ( Amer) > 60 Est GFR (Non-Af Amer) > 60 Random Glucose 147 H Serum Osmolality Lactic Acid Calcium 5.6 L* Phosphorus 1.4 L Magnesium 1.8 Total Bilirubin 0.8 Direct Bilirubin 0.4 AST 126 H D ALT 114 H Alkaline Phosphatase 80 Lactate Dehydrogenase 1605 H Troponin I Total Protein 6.8 Albumin 3.0 L Globulin 3.8 Albumin/Globulin Ratio 0.8 L Lipase 571 H TSH 3rd Generation Venous Blood Potassium Urine Color Urine Clarity Urine pH Ur Specific [place] Urine Protein Urine Glucose (UA) Urine Ketones Urine Blood Urine Nitrate Urine Bilirubin Urine Urobilinogen Ur Leukocyte Esterase Urine RBC (Auto) Urine Microscopic WBC Ur Squamous Epith Cells Urine Bacteria Urine Opiates Screen Urine Methadone Screen Ur Barbiturates Screen Ur Phencyclidine Scrn Ur Amphetamines Screen U Benzodiazepines Scrn U Oth Cocaine Metabols U Cannabinoids Screen Alcohol, Quantitative Accession No. : [id number] Patient Name / ID : RETA KEITH / [id number] Exam Date : 12/17/2016 20:56:43 ( Approved ) Study Comment : Sex / Age : M / 36Y Creator : Gilberto Guajardo Dictator : Gilberto Guajardo Movie Machine Operator : Corner Trimmer Operator : Gilberto Guajardo Approver2 : Report Date : 12/18/2016 10:28:58 My Comment : HISTORY: CP COMPARISON: No prior. TECHNIQUE: Chest PA and lateral FINDINGS: LUNGS: No active pulmonary disease. PLEURA: No significant pleural effusion identified. No pneumothorax apparent. CARDIOVASCULAR: Normal. OSSEOUS STRUCTURES: No significant abnormalities. VISUALIZED UPPER ABDOMEN: Normal. OTHER FINDINGS: None. IMPRESSION: No active disease. Accession No. : [id number] Patient Name / ID : RETA Lopez [id number] Exam Date : 12/17/2016 23:15:44 ( Approved ) Study Comment : Sex / Age : M / 36Y Creator : Gilberto Guajardo Dictator : Gilberto Guajardo Movie Machine Operator : Corner Trimmer Operator : Gilberto Guajardo Approver2 : Report Date : 12/18/2016 08:41:21 My Comment : PROCEDURE: Scribe prelim HISTORY: elevated dimer, SOB COMPARISON: Chest x-ray same day TECHNIQUE: Axial computed tomography images were obtained of the chest in the pulmonary arterial phase of enhancement. Coronal and sagittal reformatted images were created and reviewed. Intravenous contrast dose: 100 cc Radiation dose: Total exam DLP = 384 mGy-cm. FINDINGS: PULMONARY ARTERIES: Unremarkable. No pulmonary embolism. AORTA: No acute findings. No thoracic aortic aneurysm. LUNGS: Unremarkable. No nodule, mass or pulmonary consolidation. PLEURAL SPACES: Unremarkable. No effusion or pneuomothorax. HEART: Unremarkable. No cardiomegaly. No significant pericardial effusion. LYMPH NODES: No lymphadenopathy. BONES, CHEST WALL: Unremarkable. No fracture or destructive lesion OTHER FINDINGS: Images of the upper abdomen reveal evidence of moderate inflammatory change in phlegmon adjacent to the body and tail of the pancreas with some additional phlegmon extending into the left anterior para renal space and adjacent to the spleen. Remainder the pancreas is not identified on the images. Findings are consistent with moderate pancreatitis without pseudocyst formation. Moderate fatty infiltration of the liver is noted. No perihepatic collections are seen. No intrahepatic ductal dilatation is seen. Small hiatal hernia is appreciated. IMPRESSION: No CT scan evidence of pulmonary embolism. No evidence of focal infiltrate or pleural effusion. Moderate pancreatitis although incompletely evaluated on this examination. This agrees with preliminary report. Accession No. : [id number] Patient Name / ID : RETA KEITH / [id number] Exam Date : 12/18/2016 11:26:48 ( Approved ) Study Comment : Sex / Age : M / 36Y Creator : Gilberto Guajardo Dictator : Gilberto Guajardo Movie Machine Operator : Corner Trimmer Operator : Gilberto Guajardo Approver2 : Report Date : 12/18/2016 13:09:00 My Comment : HISTORY: pancreatitis COMPARISON: CT scan yesterday TECHNIQUE: Sonographic evaluation of the abdomen. FINDINGS: LIVER: Measures 20 cm. Diffuse increased echogenicity of the liver parenchyma. No mass. No intrahepatic bile duct dilatation. GALLBLADDER: Slightly contracted but without gallstones or wall thickening. No pericholecystic fluid. COMMON BILE DUCT: Measures 4 mm. No stones. No dilatation. PANCREAS: Head of the pancreas is obscured by bowel gas. There appears to be enlargement and heterogeneous echogenicity involving the body of the pancreas. Tail of the pancreas was also obscured by bowel gas and better appreciated on the CT scan performed yesterday. Small amount of peripancreatic fluid extending towards the left side of the abdomen is suspected. RIGHT KIDNEY: Measures 12cm. Normal echogenicity. No calculus, mass, or hydronephrosis. LEFT KIDNEY: Measures 14cm. Normal echogenicity. No calculus, mass, or hydronephrosis. SPLEEN: Mildly enlarged measuring 13.4 centimeters in length. No focal splenic mass is noted. AORTA: No aneurysmal dilatation. IVC: Unremarkable. OTHER FINDINGS: None. IMPRESSION: Findings consistent with pancreatitis with enlarged pancreas although the pancreas is limited in its evaluation due to overlying bowel gas. Probable mild peripancreatic inflammatory changes extending towards the left side of the abdomen. Enlarged fatty liver. No evidence of gallstones or bile duct dilatation. Assessment & Plan (1) Pancreatitis, alcoholic, acute Status: Acute (2) HIV (human immunodeficiency virus infection) Status: Acute (3) Fever Status: Acute - Assessment and Plan (Free Text) Assessment: A/P- 36 y/o male with HIV not on HAART who presented with abdominal pain and N/V and fever found to have pancreatitis without pseudocyst on CT . pt. most likely with acute alcoholic pancreatitis with h/o ETOH abuse and since no report of any psudocyst or necrotization on ct report and since there is normal wbc and no left shift ,no sign of sepsis and hence no indication for any IV abx at this time as this is secondary to alcohol pancreatitis and fever most likely secondary to the inflammatory process itself, for which the treatment is Iv hydration and pain management till inflammation resolved. if however, pt. develops any indication of sepsis such as rise in wbc or any necrotization on ct then would advise empiric gram neg abx at that time. plan- d/c IV abx. continues IV hydration and pain management as per primary team. check blood and urine cx. UA- negative. check CD4 and VL. HAART meds to be decided upon as outpatient once acute events are resolved andn once pt. establishes HIV care as outpatient. check hepatitis profile. All above d/w pt. at length and he verbalizes full understanding of all above. Thank you for allowing me to take part in the care of this patient.
[2016-12-19] MEDS: Sodium Chloride 0.9% 1,000 ML IV SCH (03:08)
[2016-12-19 09:13] LABS: BASO % 0.1 % (0.0-2.0); EOS # 0.1 K/uL (0.0-0.7); HEMATOCRIT 35.8 % (35.0-51.0); LYMPH # 1.8 K/uL (1.0-4.3); LYMPH % 12.4 % (20.0-40.0); MEAN CELL VOLUME 95.2 fl (80.0-94.0); MEAN CORPUSCULAR HEMOGLOBIN 32.2 pg (27.0-31.0); MEAN CORPUSCULAR HGB CONC 33.8 g/dL (33.0-37.0); MEAN PLATELET VOLUME 7.3 fl (7.2-11.7); MONO # 1.1 K/uL (0.0-0.8); MONO % 7.4 % (0.0-10.0); NEUT # 11.7 K/uL (1.8-7.0); NEUT % 79.1 % (50.0-75.0); RED CELL DISTRIBUTION WIDTH 13.7 % (11.5-14.5); WHITE BLOOD COUNT 14.8 K/uL (4.8-10.8)
--- NOTE | 2016-12-19 09:38 | CP.PCM.PN ---
Subjective - Date & Time of Evaluation Date of Evaluation: 12/19/16 Time of Evaluation: 09:30 - Subjective Subjective: Low grade fever 99.8 today no cough no SOB no CP abd pain better- minimal abd discomfort epigastric area- pt wants to strt eating - Liquid dit strted complains of bloatedness had diarrhea yesterday- no hx of recent abx use no N/V Objective - Vital Signs/Intake and Output Vital Signs (last 24 hours): Temp Pulse Resp BP Pulse Ox 99.5 F 93 H 20 126/80 97 12/19/16 05:02 12/19/16 05:02 12/19/16 05:02 12/19/16 05:02 12/19/16 05:02 - Medications Medications: Current Medications Acetaminophen (Tylenol 325mg Tab) 650 mg PO Q6 PRN PRN Reason: Fever >100.4 F Last Admin: 12/18/16 09:13 Dose: 650 mg Enoxaparin Sodium (Lovenox) 40 mg SC DAILY TREY PRN Reason: Protocol Last Admin: 12/18/16 09:14 Dose: 40 mg Folic Acid 1 mg/ Sodium (Chloride) 100.2 mls @ 60 mls/hr IVPB DAILY [facility] Last Admin: 12/18/16 12:28 Dose: 60 mls/hr Thiamine HCl 100 mg/ Sodium (Chloride) 101 mls @ 101 mls/hr IV DAILY [facility] Morphine Sulfate (Morphine) 2 mg IVP Q4 PRN PRN Reason: Pain, moderate (4-7) Pantoprazole Sodium (Protonix Inj) 40 mg IVP DAILY [facility] Last Admin: 12/18/16 11:13 Dose: 40 mg - Labs Labs: 12/18/16 06:02 12/18/16 06:02 PT 13.3 SECONDS (9.6-11.2) H 12/18/16 15:50 INR 1.28 (0.92-1.08) H 12/18/16 15:50 - Constitutional Appears: Non-toxic, No Acute Distress - Head Exam Head Exam: ATRAUMATIC, NORMAL INSPECTION, NORMOCEPHALIC - Eye Exam Eye Exam: EOMI, Normal appearance, PERRL Pupil Exam: NORMAL ACCOMODATION - ENT Exam ENT Exam: Mucous Membranes Dry, Normal External Ear Exam Additional comments: no oral thrush - Neck Exam Neck Exam: Full ROM. absent: Meningismus - Respiratory Exam Respiratory Exam: NORMAL BREATHING PATTERN. absent: Rales, Wheezes, Respiratory Distress - Cardiovascular Exam Cardiovascular Exam: REGULAR RHYTHM, +S1, +S2 - GI/Abdominal Exam GI & Abdominal Exam: Distended (sl distended), Soft, slight epigastric Tenderness, Normal Bowel Sounds - Back Exam Back Exam: Full ROM. absent: CVA tenderness (L), CVA tenderness (R), paraspinal tenderness, vertebral tenderness - Neurological Exam Neurological Exam: Alert, Awake, CN II-XII Intact, Oriented x3 Neuro motor strength exam: Left Upper Extremity: 5, Right Upper Extremity: 5, Left Lower Extremity: 5, Right Lower Extremity: 5 - Psychiatric Exam Psychiatric exam: Normal Affect, Normal Mood - Skin Skin Exam: Dry, Normal Color, Warm Assessment and Plan (1) Pancreatitis, alcoholic, acute Status: Acute (2) Sepsis Status: Suspected (3) Hyponatremia Status: Acute (4) HIV (human immunodeficiency virus infection) Status: Chronic (5) Fever Status: Acute (6) Hypokalemia Status: Acute (7) Alcohol abuse Status: Chronic (8) DVT prophylaxis Status: Acute - Assessment and Plan (Free Text) Assessment: 36 y/o gent with hx of HIV + not on HAART , hx of Alcohol abuse came in because of fever, abd pain, nausea /vomiting. CT of abd: Severe pancreatitis with moderate areas of peripancreatic phlegmon and inflammatory change. Secondary duodenitis. Mild ileus. No portal vein or splenic vein thrombus. Minor left effusion. (1) Pancreatitis, alcoholic, acute Status: Acute Pt came in with abd pain mostly epigastric radiating to the back, hx of Alcoholsim CT scan of chest showed : Pancreatitis changes, no necrosis nor pseudocyst however Ct of abd with contrast done showed Phlegmon Discussed case with dr Leyva- rec to start IV Zosyn Pain mgt with IV Morphine IVF hydration GI consult: Dr Minor CT of abd Lipase= 500s Pain better today- pt would like some food- will start Clear liquid diet (2) Sepsis Status: Suspected Pt had fever , abd pain and elevated Lactate ID: Dr Leyva WBC ct up to 14k today start IV Zosyn (3) Hyponatremia, improving Status: Acute ? sec to HIV Serum osm low (4) HIV (human immunodeficiency virus infection) Status: Chronic pt states that when he was on HAART 3 yrs ago , his viral load was undetectable however he stopped all his meds and never followed up at [facility] HIV clinic check CD4 Ct and Viral load (5) Fever Status: Acute ? etiology sec to Pancreatitis, HIV vs UTI Blood c/s, Urine c/s empirically start IV Zosyn UA shows WBC 24 ? UTI (6) Alcohol Abuse last drink was 6 days ago no signs of withdrawal Ativan prn started IV Thiamine and FA- will change to PO if pt tolerates PO (7) Hypokalemia, Hypophosphatemia Status: Acute Kphos, Kcl runs (8) DVT prophylaxis Status: Acute Lovenox
[2016-12-19 09:46] LABS: ALB/GLOB RATIO 0.8 (1.0-2.1); ALKALINE PHOSPHATASE 99 U/L (38-126); ALT/SGPT 104 U/L (21-72); AST/SGOT 103 U/L (17-59); BILIRUBIN,TOTAL 0.8 mg/dl (0.2-1.3); BLOOD UREA NITROGEN 6 mg/dl (9-20); CALCIUM 6.6 mg/dL (8.4-10.2); CARBON DIOXIDE 23 mmol/L (22-30); CHLORIDE 98 mmol/L (98-107); GFR AFRICAN-AMERICAN > 60; GLUCOSE,RANDOM 100 mg/dL (75-110); PHOSPHOROUS 2.2 mg/dl (2.5-4.5); POTASSIUM 3.9 MMOL/L (3.6-5.0); SODIUM 131 mmol/l (132-148); TOTAL PROTEIN 7.5 G/DL (6.3-8.2)
[2016-12-19] MEDS: Thiamine 100 MG in Sodium Chloride 0.9% 100 ML IV SCH (10:05)
[2016-12-19 10:46] LABS: LIPASE 514 U/L (23-300)
[2016-12-19] MEDS ORDERED: Sodium Chloride 0.9% 50 ML IV ONE (10:55)
[2016-12-19] MEDS ORDERED: Iohexol 300 100 ML IJ ONE (10:55)
--- NOTE | 2016-12-19 13:57 | CT ---
PROCEDURE: CT Abdomen and Pelvis with contrast HISTORY: abd pain,fever, HIV + COMPARISON: Ultrasound yesterday, CT scan chest 12/17/2016 TECHNIQUE: Contrast dose: 100 cc Radiation dose: Total exam DLP = 1113 mGy-cm. FINDINGS: LOWER THORAX: Evaluation of the lung bases reveals no evidence of infiltrate. There may be some very minimal left pleural fluid appreciated. Distal esophagus is unremarkable. LIVER: Moderate diffuse fatty infiltration and hepatic enlargement. No intrahepatic ductal dilatation. GALLBLADDER AND BILE DUCTS: No gallbladder wall thickening or gallstones seen. Common bile duct is difficult to identified due to moderate heterogeneity of the pancreas. PANCREAS: Moderate diffuse enlargement of the pancreas with moderate peripancreatic inflammatory changes consistent with pancreatitis. Areas of peripancreatic soft tissue phlegmon extend into the left anterior para renal space, lesser sac, left pericolic gutter, and left lateral lower pelvis, as well as some portions extending into the clyde hepatis and anterior abdomen. No appreciable increased density is seen to suggest hemorrhagic products. No pseudocyst formation is identified. There is moderate thickening of the adjacent duodenum consistent with secondary duodenitis. SPLEEN: Mild peripancreatic phlegmon adjacent to the spleen. Spleen is mildly enlarged. . ADRENALS: Right adrenal gland is unremarkable. Left adrenal gland is normal in size. Some portions of the pancreatic phlegmon extend adjacent to the left adrenal gland. KIDNEYS AND URETERS: Right kidney is unremarkable except for small right renal calculus. Left kidney shows no evidence of hydronephrosis or mass. Portions of the peripancreatic inflammatory process around the left ureter which does not appear to be dilated. VASCULATURE: Splenic vein, SMV, and portal vein appear grossly patent. Aorta is normal in size. BOWEL: Adjacent to the left colon there are numerous areas of mild pericolonic inflammatory change related to the pancreatitis. There are also areas adjacent to thesplenic flexor and distal transverse colon. No small bowel obstruction is seen although mild ileus is suspected. APPENDIX: Normal appendix. PERITONEUM: Diffuse pancreatic phlegmon as described above. No mesenteric air seen. LYMPH NODES: Small scattered shotty retroperitoneal lymph nodes are seen. BLADDER: Unremarkable. REPRODUCTIVE: Unremarkable. BONES: No acute fracture. OTHER FINDINGS: None. IMPRESSION: Severe pancreatitis with moderate areas of peripancreatic phlegmon an inflammatory change as described above. Secondary duodenitis. Mild ileus. No portal vein or splenic vein thrombus. Minor left effusion.
[2016-12-19] MEDS: Enoxaparin 40 mg Syringe SC SCH (17:14)
[2016-12-19] MEDS: Piperacillin/Tazobact 3.375 GM in Sodium Chloride 0.9% 100 ML IVPB SCH ×2 (17:15→21:28)
[2016-12-20] MEDS: Piperacillin/Tazobact 3.375 GM in Sodium Chloride 0.9% 100 ML IVPB SCH ×4 (04:45→22:05)
[2016-12-20 07:24] LABS: BASO % 0.1 % (0.0-2.0); EOS # 0.2 K/uL (0.0-0.7); LYMPH # 1.5 K/uL (1.0-4.3); LYMPH % 10.4 % (20.0-40.0); MEAN CELL VOLUME 95.2 fl (80.0-94.0); MEAN CORPUSCULAR HEMOGLOBIN 32.4 pg (27.0-31.0); MEAN CORPUSCULAR HGB CONC 34.1 g/dL (33.0-37.0); MEAN PLATELET VOLUME 7.4 fl (7.2-11.7); MONO # 1.1 K/uL (0.0-0.8); MONO % 7.3 % (0.0-10.0); NEUT # 11.9 K/uL (1.8-7.0); NEUT % 81.2 % (50.0-75.0); RED CELL DISTRIBUTION WIDTH 13.4 % (11.5-14.5); WHITE BLOOD COUNT 14.7 K/uL (4.8-10.8)
[2016-12-20 07:52] LABS: ALB/GLOB RATIO 0.8 (1.0-2.1); ALKALINE PHOSPHATASE 99 U/L (38-126); ALT/SGPT 90 U/L (21-72); AST/SGOT 89 U/L (17-59); BILIRUBIN,TOTAL 0.6 mg/dl (0.2-1.3); BLOOD UREA NITROGEN 4 mg/dl (9-20); CALCIUM 7.2 mg/dL (8.4-10.2); CARBON DIOXIDE 26 mmol/L (22-30); CHLORIDE 94 mmol/L (98-107); CHOLESTEROL 92 mg/dL (0-199); GFR AFRICAN-AMERICAN > 60; GLUCOSE,RANDOM 99 mg/dL (75-110); LIPASE 397 U/L (23-300); POTASSIUM 3.1 MMOL/L (3.6-5.0); SODIUM 134 mmol/l (132-148); TOTAL PROTEIN 6.7 G/DL (6.3-8.2)
[2016-12-20] MEDS: Thiamine 100 MG in Sodium Chloride 0.9% 100 ML IV SCH (09:08)
[2016-12-20] MEDS: Enoxaparin 40 mg Syringe SC SCH (09:09)
[2016-12-20] MEDS ORDERED: Potassium Chloride 20 mEq/15 ml LIQ UD PO ONE ×2 (09:20→15:59)
--- NOTE | 2016-12-20 10:03 | CARD ---
APPROVED REPORT EKG Measurement Heart [id number] <Conclusion> Sinus tachycardia Possible Left atrial enlargement Incomplete right bundle branch block Prolonged QT Abnormal ECG
--- NOTE | 2016-12-20 11:23 | CP.PCM.PN ---
Subjective - Date & Time of Evaluation Date of Evaluation: 12/20/16 Time of Evaluation: 10:30 - Subjective Subjective: still with fever abd pain better- just mild discomfort and bloatedness no N/V had 3 BMs yesterday tolerating Clear liquid dit- requesting for solid food no CP no SOB no cough no dysuria no oral thrush Objective - Vital Signs/Intake and Output Vital Signs (last 24 hours): Temp Pulse Resp BP Pulse Ox 99.2 F 95 H 18 118/77 97 12/20/16 08:17 12/20/16 08:17 12/20/16 08:17 12/20/16 08:17 12/20/16 08:17 - Medications Medications: Current Medications Acetaminophen (Tylenol 325mg Tab) 650 mg PO Q6 PRN PRN Reason: Fever >100.4 F Last Admin: 12/20/16 00:45 Dose: 650 mg Enoxaparin Sodium (Lovenox) 40 mg SC DAILY [facility] PRN Reason: Protocol Last Admin: 12/20/16 09:09 Dose: 40 mg Folic Acid 1 mg/ Sodium (Chloride) 100.2 mls @ 60 mls/hr IVPB DAILY [facility] Last Admin: 12/20/16 09:08 Dose: 60 mls/hr Thiamine HCl 100 mg/ Sodium (Chloride) 101 mls @ 101 mls/hr IV DAILY [facility] Last Admin: 12/20/16 09:08 Dose: 101 mls/hr Piperacillin Sod/Tazobactam (Sod 3.375 gm/ Sodium Chloride) 100 mls @ 100 mls/ hr IVPB Q6 [facility] Last Admin: 12/20/16 04:45 Dose: 100 mls/hr Lorazepam (Ativan) 1 mg IVP Q4 PRN PRN Reason: Symptoms of alcohol withdrawl Morphine Sulfate (Morphine) 2 mg IVP Q4 PRN PRN Reason: Pain, moderate (4-7) Pantoprazole Sodium (Protonix Inj) 40 mg IVP DAILY [facility] Last Admin: 12/20/16 09:08 Dose: 40 mg - Labs Labs: 12/20/16 05:45 12/20/16 05:45 PT 13.3 SECONDS (9.6-11.2) H 12/18/16 15:50 INR 1.28 (0.92-1.08) H 12/18/16 15:50 - Constitutional Appears: Non-toxic, No Acute Distress - Head Exam Head Exam: ATRAUMATIC, NORMAL INSPECTION, NORMOCEPHALIC - Eye Exam Eye Exam: EOMI, Normal appearance, PERRL Pupil Exam: NORMAL ACCOMODATION - ENT Exam ENT Exam: Mucous Membranes Dry, Normal External Ear Exam Additional comments: no oral thrush - Neck Exam Neck Exam: Full ROM. absent: Meningismus - Respiratory Exam Respiratory Exam: NORMAL BREATHING PATTERN. absent: Rales, Wheezes, Respiratory Distress - Cardiovascular Exam Cardiovascular Exam: REGULAR RHYTHM, +S1, +S2 - GI/Abdominal Exam GI & Abdominal Exam: Distended (sl distended), Soft, slight epigastric Tenderness, Normal Bowel Sounds - Back Exam Back Exam: Full ROM. absent: CVA tenderness (L), CVA tenderness (R), paraspinal tenderness, vertebral tenderness - Neurological Exam Neurological Exam: Alert, Awake, CN II-XII Intact, Oriented x3 Neuro motor strength exam: Left Upper Extremity: 5, Right Upper Extremity: 5, Left Lower Extremity: 5, Right Lower Extremity: 5 - Psychiatric Exam Psychiatric exam: Normal Affect, Normal Mood - Skin Skin Exam: Dry, Normal Color, Warm Assessment and Plan (1) Pancreatitis, alcoholic, acute Status: Acute (2) Sepsis Status: Suspected (3) Hyponatremia Status: Acute (4) HIV (human immunodeficiency virus infection) Status: Chronic (5) Fever Status: Acute (6) Hypokalemia Status: Acute (7) Alcohol abuse Status: Chronic (8) DVT prophylaxis Status: Acute (9) Transaminitis Status: Acute - Assessment and Plan (Free Text) Assessment: 36 y/o gent with hx of HIV Infection not on HAART , hx of Alcohol abuse came in because of fever, abd pain, nausea /vomiting. CT of abd: Severe pancreatitis with moderate areas of peripancreatic phlegmon and inflammatory change. Secondary duodenitis. Mild ileus. No portal vein or splenic vein thrombus. Minor left effusion. (1) Pancreatitis, alcoholic, acute Status: Acute Pt came in with abd pain mostly epigastric radiating to the back, hx of Alcoholsim CT scan of chest showed : Pancreatitis changes, no necrosis nor pseudocyst however Ct of abd with contrast done showed Phlegmonous pancreas Discussed case with dr Leyva- rec to start IV Zosyn Pain mgt with IV Morphine IVF hydration GI consult: Dr Minor CT of abd Lipase= 500s now down to the 300s Pain better , tolerating liquid diet, requesting for more solid food- will try [place] diet (2) Sepsis Status: Suspected Pt had fever , abd pain and elevated Lactate ID: Dr Leyva WBC ct up to 14k today on IV Zosyn (3) Hyponatremia, improved Status: Acute ? sec to HIV Serum osm low (4) HIV (human immunodeficiency virus infection) Status: Chronic pt states that when he was on HAART 3 yrs ago , his viral load was undetectable however he stopped all his meds and never followed up at [facility] HIV clinic check CD4 Ct and Viral load- pending (5) Fever Status: Acute ? etiology sec to Pancreatitis, HIV vs UTI Blood c/s, Urine c/s empirically start IV Zosyn UA shows WBC 24 ? UTI Pt has diarrhea- C diff negative, Stool work up pending (6) Alcohol Abuse last drink was 1 wk ago no signs of withdrawal Ativan prn started IV Thiamine and FA- will change to PO counseled pt on Alcoholism (7) Hypokalemia, Hypophosphatemia Status: Acute Kphos, Kcl runs (8) Diarrhea Stool c/s, Oand P cdiff negative (9) DVT prophylaxis Status: Acute Lovenox (10) Transaminitis likely sec to ETOH - improving cont to monitor
--- NOTE | 2016-12-20 13:27 | CP.PCM.PN ---
<Matthew Grant - Last Filed: 12/20/16 17:16> Subjective - Date & Time of Evaluation Date of Evaluation: 12/20/16 Time of Evaluation: 11:10 - Subjective Subjective: PGY4 GI Fellow Progress Note Patient seen and examined bedside this morning. The patient denies any abdominal pain today but continues to admit to loose stool. Tolerating liquid diet and eager to eat. No nausea, vomiting. Does admit today to drinking EtOH in excess, most recently 9 days prior to arrival. 12 system ROS performed and negative except where stated. Objective - Vital Signs/Intake and Output Vital Signs (last 24 hours): Temp Pulse Resp BP Pulse Ox 99.9 F H 106 H 18 122/78 98 12/20/16 12:25 12/20/16 12:25 12/20/16 12:25 12/20/16 12:25 12/20/16 12:25 - Medications Medications: Current Medications Acetaminophen (Tylenol 325mg Tab) 650 mg PO Q6 PRN PRN Reason: Fever >100.4 F Last Admin: 12/20/16 00:45 Dose: 650 mg Enoxaparin Sodium (Lovenox) 40 mg SC DAILY [facility] PRN Reason: Protocol Last Admin: 12/20/16 09:09 Dose: 40 mg Folic Acid 1 mg/ Sodium (Chloride) 100.2 mls @ 60 mls/hr IVPB DAILY [facility] Last Admin: 12/20/16 09:08 Dose: 60 mls/hr Thiamine HCl 100 mg/ Sodium (Chloride) 101 mls @ 101 mls/hr IV DAILY [facility] Last Admin: 12/20/16 09:08 Dose: 101 mls/hr Piperacillin Sod/Tazobactam (Sod 3.375 gm/ Sodium Chloride) 100 mls @ 100 mls/ hr IVPB Q6 [facility] Last Admin: 12/20/16 12:09 Dose: 100 mls/hr Lorazepam (Ativan) 1 mg IVP Q4 PRN PRN Reason: Symptoms of alcohol withdrawl Morphine Sulfate (Morphine) 2 mg IVP Q4 PRN PRN Reason: Pain, moderate (4-7) Pantoprazole Sodium (Protonix Inj) 40 mg IVP DAILY [facility] Last Admin: 12/20/16 09:08 Dose: 40 mg - Labs Labs: 12/20/16 05:45 12/20/16 05:45 PT 13.3 SECONDS (9.6-11.2) H 12/18/16 15:50 INR 1.28 (0.92-1.08) H 12/18/16 15:50 - Constitutional Appears: Non-toxic, No Acute Distress - Eye Exam Eye Exam: EOMI, PERRL - ENT Exam ENT Exam: Mucous Membranes Moist - Respiratory Exam Respiratory Exam: Clear to Ausculation Bilateral. absent: Rales, Rhonchi, Wheezes - Cardiovascular Exam Cardiovascular Exam: RRR, +S1, +S2 - GI/Abdominal Exam GI & Abdominal Exam: Soft, Normal Bowel Sounds. absent: Distended, Firm, Guarding, Rigid, Tenderness, Organomegaly - Extremities Exam Extremities Exam: Normal Inspection. absent: Pedal Edema - Neurological Exam Neurological Exam: Alert, Awake, Oriented x3 - Psychiatric Exam Psychiatric exam: Normal Affect, Normal Mood - Skin Skin Exam: Dry, Warm Assessment and Plan - Assessment and Plan (Free Text) Assessment: Patient is a 36yo male with PMHx significant for HIV, not on ART who presented with weakness, SOB and epigastric pain for one weeks duration. -Acute pancreatitis with peripancreatic phlegmon noted on CT -HIV not on therapy -Diarrheal illness Plan: -Stool infectious work up in progress; C diff negative -IVF as ordered -Advance diet as tolerated -Pt to follow up in [facility] clinic -Will sign off. Thank you for allowing us to participate in the care of your patient. <Donna Minor MD - Last Filed: 12/20/16 20:06> Objective - Vital Signs/Intake and Output Vital Signs (last 24 hours): Temp Pulse Resp BP Pulse Ox 97.8 F 107 H 20 114/76 98 12/20/16 19:29 12/20/16 19:29 12/20/16 19:29 12/20/16 19:29 12/20/16 19:29 - Medications Medications: Current Medications Acetaminophen (Tylenol 325mg Tab) 650 mg PO Q6 PRN PRN Reason: Fever >100.4 F Last Admin: 12/20/16 00:45 Dose: 650 mg Enoxaparin Sodium (Lovenox) 40 mg SC DAILY [facility] PRN Reason: Protocol Last Admin: 12/20/16 09:09 Dose: 40 mg Folic Acid (Folic Acid) 1 mg PO DAILY [facility] Piperacillin Sod/Tazobactam (Sod 3.375 gm/ Sodium Chloride) 100 mls @ 100 mls/ hr IVPB Q6 [facility] Last Admin: 12/20/16 16:20 Dose: 100 mls/hr Metronidazole (Flagyl 500mg/100ml Ns) 100 mls @ 100 mls/hr IVPB Q8 [facility] Last Admin: 12/20/16 16:20 Dose: 100 mls/hr Lorazepam (Ativan) 1 mg IVP Q4 PRN PRN Reason: Symptoms of alcohol withdrawl Morphine Sulfate (Morphine) 2 mg IVP Q4 PRN PRN Reason: Pain, moderate (4-7) Pantoprazole Sodium (Protonix Inj) 40 mg IVP DAILY [facility] Last Admin: 12/20/16 09:08 Dose: 40 mg Thiamine HCl (Vitamin B1 Tab) 100 mg PO DAILY [facility] - Labs Labs: 12/20/16 05:45 12/20/16 05:45 PT 13.3 SECONDS (9.6-11.2) H 12/18/16 15:50 INR 1.28 (0.92-1.08) H 12/18/16 15:50 Attending/Attestation - Attestation I have personally seen and examined this patient.: Yes I have fully participated in the care of the patient.: Yes I have reviewed all pertinent clinical information, including history, physical exam and plan: Yes Notes (Text): 12/20/16 20:00 Patient seen and examined with Gi fellow on rounds. This is a 36 yo male with PMHx significant for HIV, not on ART who presented with weakness, SOB and epigastric pain for one week duration with acute pancreatitis in setting of alcohol abuse. Diarrhea likely due to pancreatitis. Clear liquid diet, advance as tolerated. patient to follow with me in [facility] clinic. Needs HIV therapy. Discussed with team attending. Will sign off. Thank you for allowing us to participate in the care of your patient.
[2016-12-20] MEDS: metroNIDAZOLE 500mg/100ml NS 100 ML IVPB SCH (16:20)
[2016-12-20] MEDS ORDERED: Potassium Chloride 20 mEq ER Tab PO ONE (17:00)
[2016-12-21] MEDS: metroNIDAZOLE 500mg/100ml NS 100 ML IVPB SCH ×3 (00:29→16:29)
[2016-12-21] MEDS: Piperacillin/Tazobact 3.375 GM in Sodium Chloride 0.9% 100 ML IVPB SCH ×4 (04:03→21:43)
[2016-12-21 07:27] LABS: BASO % 0.3 % (0.0-2.0); EOS # 0.1 K/uL (0.0-0.7); EOS % 0.8 % (0.0-4.0); HEMATOCRIT 31.4 % (35.0-51.0); LYMPH # 1.4 K/uL (1.0-4.3); LYMPH % 10.2 % (20.0-40.0); MEAN CELL VOLUME 94.6 fl (80.0-94.0); MEAN CORPUSCULAR HEMOGLOBIN 32.6 pg (27.0-31.0); MEAN CORPUSCULAR HGB CONC 34.4 g/dL (33.0-37.0); MEAN PLATELET VOLUME 7.1 fl (7.2-11.7); MONO # 0.8 K/uL (0.0-0.8); MONO % 6.3 % (0.0-10.0); NEUT # 10.9 K/uL (1.8-7.0); NEUT % 82.4 % (50.0-75.0); RED CELL DISTRIBUTION WIDTH 13.5 % (11.5-14.5); WHITE BLOOD COUNT 13.3 K/uL (4.8-10.8)
[2016-12-21 07:53] LABS: ALB/GLOB RATIO 0.7 (1.0-2.1); ALKALINE PHOSPHATASE 106 U/L (38-126); ALT/SGPT 98 U/L (21-72); AST/SGOT 116 U/L (17-59); BILIRUBIN,TOTAL 0.5 mg/dl (0.2-1.3); BLOOD UREA NITROGEN 5 mg/dl (9-20); CALCIUM 7.9 mg/dL (8.4-10.2); CARBON DIOXIDE 25 mmol/L (22-30); CHLORIDE 98 mmol/L (98-107); GFR AFRICAN-AMERICAN > 60; GLUCOSE,RANDOM 100 mg/dL (75-110); LIPASE 391 U/L (23-300); POTASSIUM 3.5 MMOL/L (3.6-5.0); SODIUM 135 mmol/l (132-148); TOTAL PROTEIN 6.7 G/DL (6.3-8.2)
[2016-12-21] MEDS: Enoxaparin 40 mg Syringe SC SCH (09:07)
[2016-12-21] MEDS ORDERED: Potassium Chloride 20 mEq ER Tab PO ONE (10:00)
--- NOTE | 2016-12-21 11:34 | CP.PCM.PN ---
Subjective - Date & Time of Evaluation Date of Evaluation: 12/21/16 Time of Evaluation: 11:15 - Subjective Subjective: Febrile no cough no SOB no CP abd pain better- very minimal left upper quadrant pain and tenderness tolerating PO diet no signs of alcohol withdrawal diarrhea better 2x yesterday - none so far this am Objective - Vital Signs/Intake and Output Vital Signs (last 24 hours): Temp Pulse Resp BP Pulse Ox 99.4 F 94 H 18 114/77 97 12/21/16 08:15 12/21/16 08:15 12/21/16 08:15 12/21/16 08:15 12/21/16 08:15 - Medications Medications: Current Medications Acetaminophen (Tylenol 325mg Tab) 650 mg PO Q6 PRN PRN Reason: Fever >100.4 F Last Admin: 12/20/16 00:45 Dose: 650 mg Enoxaparin Sodium (Lovenox) 40 mg SC DAILY [facility] PRN Reason: Protocol Last Admin: 12/21/16 09:07 Dose: 40 mg Folic Acid (Folic Acid) 1 mg PO DAILY [facility] Last Admin: 12/21/16 09:07 Dose: 1 mg Piperacillin Sod/Tazobactam (Sod 3.375 gm/ Sodium Chloride) 100 mls @ 100 mls/ hr IVPB Q6 [facility] Last Admin: 12/21/16 09:08 Dose: 100 mls/hr Metronidazole (Flagyl 500mg/100ml Ns) 100 mls @ 100 mls/hr IVPB Q8 [facility] Last Admin: 12/21/16 09:06 Dose: 100 mls/hr Lorazepam (Ativan) 1 mg IVP Q4 PRN PRN Reason: Symptoms of alcohol withdrawl Morphine Sulfate (Morphine) 2 mg IVP Q4 PRN PRN Reason: Pain, moderate (4-7) Pantoprazole Sodium (Protonix Inj) 40 mg IVP DAILY [facility] Last Admin: 12/21/16 09:07 Dose: 40 mg Thiamine HCl (Vitamin B1 Tab) 100 mg PO DAILY [facility] Last Admin: 12/21/16 09:07 Dose: 100 mg - Labs Labs: 12/21/16 06:15 12/21/16 06:15 PT 13.3 SECONDS (9.6-11.2) H 12/18/16 15:50 INR 1.28 (0.92-1.08) H 12/18/16 15:50 - Constitutional Appears: Non-toxic, No Acute Distress - Head Exam Head Exam: ATRAUMATIC, NORMAL INSPECTION, NORMOCEPHALIC - Eye Exam Eye Exam: EOMI, Normal appearance, PERRL Pupil Exam: NORMAL ACCOMODATION - ENT Exam ENT Exam: Mucous Membranes Dry, Normal External Ear Exam Additional comments: no oral thrush - Neck Exam Neck Exam: Full ROM. absent: Meningismus - Respiratory Exam Respiratory Exam: NORMAL BREATHING PATTERN. absent: Rales, Wheezes, Respiratory Distress - Cardiovascular Exam Cardiovascular Exam: REGULAR RHYTHM, +S1, +S2 - GI/Abdominal Exam GI & Abdominal Exam: Distended (sl distended), Soft, slight LUQ Tenderness, Normal Bowel Sounds - Back Exam Back Exam: Full ROM. absent: CVA tenderness (L), CVA tenderness (R), paraspinal tenderness, vertebral tenderness - Neurological Exam Neurological Exam: Alert, Awake, CN II-XII Intact, Oriented x3 Neuro motor strength exam: Left Upper Extremity: 5, Right Upper Extremity: 5, Left Lower Extremity: 5, Right Lower Extremity: 5 - Psychiatric Exam Psychiatric exam: Normal Affect, Normal Mood - Skin Skin Exam: Dry, Normal Color, Warm Assessment and Plan (1) Pancreatitis, alcoholic, acute Status: Acute (2) Sepsis Status: Suspected (3) Hyponatremia Status: Acute (4) HIV (human immunodeficiency virus infection) Status: Chronic (5) Fever Status: Acute (6) Hypokalemia Status: Acute (7) Alcohol abuse Status: Chronic (8) DVT prophylaxis Status: Acute (9) Transaminitis Status: Acute - Assessment and Plan (Free Text) Assessment: 36 y/o gent with hx of HIV Infection not on HAART , hx of Alcohol abuse came in because of fever, abd pain, nausea /vomiting. CT of abd: Severe pancreatitis with moderate areas of peripancreatic phlegmon and inflammatory change. Secondary duodenitis. Mild ileus. No portal vein or splenic vein thrombus. Minor left effusion. (1) Pancreatitis, alcoholic, acute Status: Acute Pt came in with abd pain mostly epigastric radiating to the back, hx of Alcoholsim CT scan of chest showed : Pancreatitis changes, no necrosis nor pseudocyst however Ct of abd with contrast done showed Phlegmonous pancreas on IV Zosyn and Flagyl Pain mgt with IV Morphine IVF hydration GI consulted: Dr Minor Lipase= 500s now down to the 300s Pain better , tolerating [place] diet (2) Sepsis Status: Suspected Pt had fever , abd pain and elevated Lactate ID: Dr Leyva WBC ct up to 14K on IV Zosyn and Flagyl Cultures negative so far Fever was better yesterday however pt spiked again to 101.6 just now (3) Hyponatremia, improved Status: Acute ? sec to HIV Serum osm low (4) HIV (human immunodeficiency virus infection) Status: Chronic pt states that when he was on HAART 3 yrs ago , his viral load was undetectable however he stopped all his meds and never followed up at [facility] HIV clinic CD4 Im=[id number] Viral load = 3.5 SW consulted- [facility] will come in am to see pt (6) Alcohol Abuse last drink was more than 1 wk ago no signs of withdrawal Ativan prn started Thiamine and FA counseled pt on Alcoholism (7) Hypokalemia, Hypophosphatemia Status: Acute Kphos, Kcl replacement given (8) Diarrhea, improving Stool c/s O and P: negative cdiff negative (9) DVT prophylaxis Status: Acute Lovenox (10) Transaminitis likely sec to ETOH - improving cont to monitor
--- NOTE | 2016-12-21 15:56 | CP.PCM.PN ---
Subjective - Date & Time of Evaluation Date of Evaluation: 12/21/16 Time of Evaluation: 15:00 - Subjective Subjective: ID note- Pt. seen and examined. He is feeling somewhat better. no more nausea or vomiting . No diarrhea so far today. spiked temp again. Objective - Vital Signs/Intake and Output Vital Signs (last 24 hours): Temp Pulse Resp BP Pulse Ox 101.6 F H 94 H 18 114/77 97 12/21/16 11:55 12/21/16 08:15 12/21/16 08:15 12/21/16 08:15 12/21/16 08:15 - Medications Medications: Current Medications Acetaminophen (Tylenol 325mg Tab) 650 mg PO Q6 PRN PRN Reason: Fever >100.4 F Last Admin: 12/21/16 11:55 Dose: 650 mg Enoxaparin Sodium (Lovenox) 40 mg SC DAILY [facility] PRN Reason: Protocol Last Admin: 12/21/16 09:07 Dose: 40 mg Folic Acid (Folic Acid) 1 mg PO DAILY [facility] Last Admin: 12/21/16 09:07 Dose: 1 mg Piperacillin Sod/Tazobactam (Sod 3.375 gm/ Sodium Chloride) 100 mls @ 100 mls/ hr IVPB Q6 [facility] Last Admin: 12/21/16 09:08 Dose: 100 mls/hr Metronidazole (Flagyl 500mg/100ml Ns) 100 mls @ 100 mls/hr IVPB Q8 [facility] Last Admin: 12/21/16 09:06 Dose: 100 mls/hr Lorazepam (Ativan) 1 mg IVP Q4 PRN PRN Reason: Symptoms of alcohol withdrawl Morphine Sulfate (Morphine) 2 mg IVP Q4 PRN PRN Reason: Pain, moderate (4-7) Pantoprazole Sodium (Protonix Inj) 40 mg IVP DAILY [facility] Last Admin: 12/21/16 09:07 Dose: 40 mg Thiamine HCl (Vitamin B1 Tab) 100 mg PO DAILY [facility] Last Admin: 12/21/16 09:07 Dose: 100 mg - Labs Labs: 12/21/16 06:15 12/21/16 06:15 PT 13.3 SECONDS (9.6-11.2) H 12/18/16 15:50 INR 1.28 (0.92-1.08) H 12/18/16 15:50 Microbiology 12/20/16 11:00 Stool Stool Culture - Final NO SALMONELLA, SHIGELLA OR CAMPYLOBACTER ISOLATED. 12/17/16 21:45 Blood-Venous Blood Culture - Preliminary NO GROWTH AFTER 4 DAYS 12/17/16 21:15 Blood-Venous Blood Culture - Preliminary NO GROWTH AFTER 4 DAYS 12/20/16 11:00 Stool Ova and Parasite Concentrate Exam - Final 12/17/16 20:50 Urine,Clean Catch Urine Culture - Final No Growth (<1,000 CFU/ML) - Constitutional Appears: No Acute Distress - Head Exam Head Exam: ATRAUMATIC - Neck Exam Neck Exam: Full ROM - Respiratory Exam Respiratory Exam: Clear to Ausculation Bilateral, NORMAL BREATHING PATTERN - Cardiovascular Exam Cardiovascular Exam: RRR, +S1, +S2 - GI/Abdominal Exam GI & Abdominal Exam: Soft, Normal Bowel Sounds Additional comments: Miniaml distention minimal tenderness in left upper quadrant only No guarding, no rebound - Extremities Exam Extremities Exam: Normal Inspection - Neurological Exam Neurological Exam: Alert, Oriented x3 Assessment and Plan (1) Pancreatitis, alcoholic, acute Status: Acute (2) HIV (human immunodeficiency virus infection) Status: Chronic (3) Fever Status: Acute - Assessment and Plan (Free Text) Assessment: A/P- 36 y/o male with HIV not on HAART who presented with abdominal pain and N/V and fever found to have pancreatitis without pseudocyst on CT . clinically better but still spikes temp and since wbc had risen after admission and since abd CT done after the chest Ct had shown ? phlegmon d/w and had advised to resume IV zosyn and add flagyl as well. blood cx- neg x 2 stool cx- neg stool o and P - neg stool c.diff Ag- neg Hepatitis profile- negative. [id number] giardia- neg cryptosporidium- negative plan- continue with IV zosyn day #3. continue with IV flagyl day #3. IV hydration as per primary team. continues IV hydration and pain management as per primary team. HAART meds to be decided upon as outpatient once acute events are resolved andn once pt. establishes HIV care as outpatient.
[2016-12-22] MEDS: metroNIDAZOLE 500mg/100ml NS 100 ML IVPB SCH ×3 (01:03→18:25)
[2016-12-22] MEDS: Piperacillin/Tazobact 3.375 GM in Sodium Chloride 0.9% 100 ML IVPB SCH ×4 (04:29→22:26)
[2016-12-22 07:11] LABS: BASO % 0.3 % (0.0-2.0); EOS # 0.1 K/uL (0.0-0.7); EOS % 0.8 % (0.0-4.0); HEMATOCRIT 30.9 % (35.0-51.0); LYMPH # 1.4 K/uL (1.0-4.3); LYMPH % 12.7 % (20.0-40.0); MEAN CORPUSCULAR HEMOGLOBIN 32.9 pg (27.0-31.0); MEAN CORPUSCULAR HGB CONC 34.6 g/dL (33.0-37.0); MEAN PLATELET VOLUME 7.1 fl (7.2-11.7); MONO # 0.7 K/uL (0.0-0.8); MONO % 6.3 % (0.0-10.0); NEUT # 8.7 K/uL (1.8-7.0); NEUT % 79.9 % (50.0-75.0); RED CELL DISTRIBUTION WIDTH 13.5 % (11.5-14.5); WHITE BLOOD COUNT 10.9 K/uL (4.8-10.8)
[2016-12-22 07:32] LABS: ALB/GLOB RATIO 0.7 (1.0-2.1); ALKALINE PHOSPHATASE 96 U/L (38-126); ALT/SGPT 123 U/L (21-72); AST/SGOT 144 U/L (17-59); BILIRUBIN,TOTAL 0.5 mg/dl (0.2-1.3); BLOOD UREA NITROGEN 6 mg/dl (9-20); CALCIUM 8.1 mg/dL (8.4-10.2); CARBON DIOXIDE 24 mmol/L (22-30); CHLORIDE 98 mmol/L (98-107); GFR AFRICAN-AMERICAN > 60; GLUCOSE,RANDOM 99 mg/dL (75-110); LIPASE 411 U/L (23-300); POTASSIUM 3.4 MMOL/L (3.6-5.0); SODIUM 125 mmol/l (132-148); TOTAL PROTEIN 6.7 G/DL (6.3-8.2)
[2016-12-22] MEDS: Enoxaparin 40 mg Syringe SC SCH (09:18)
--- NOTE | 2016-12-22 17:37 | CP.PCM.PN ---
Subjective - Date & Time of Evaluation Date of Evaluation: 12/22/16 Time of Evaluation: 11:40 - Subjective Subjective: Pt seen and examined. Admitted feeling better and wishing he could go home. Objective - Vital Signs/Intake and Output Vital Signs (last 24 hours): Temp Pulse Resp BP Pulse Ox 97.9 F 90 18 102/69 97 12/22/16 16:00 12/22/16 16:00 12/22/16 16:00 12/22/16 16:00 12/22/16 16:00 - Medications Medications: Current Medications Acetaminophen (Tylenol 325mg Tab) 650 mg PO Q6 PRN PRN Reason: Fever >100.4 F Last Admin: 12/21/16 11:55 Dose: 650 mg Enoxaparin Sodium (Lovenox) 40 mg SC DAILY [facility] PRN Reason: Protocol Last Admin: 12/22/16 09:18 Dose: 40 mg Folic Acid (Folic Acid) 1 mg PO DAILY [facility] Last Admin: 12/22/16 09:18 Dose: 1 mg Piperacillin Sod/Tazobactam (Sod 3.375 gm/ Sodium Chloride) 100 mls @ 100 mls/ hr IVPB Q6 [facility] Last Admin: 12/22/16 17:09 Dose: 100 mls/hr Metronidazole (Flagyl 500mg/100ml Ns) 100 mls @ 100 mls/hr IVPB Q8 [facility] Last Admin: 12/22/16 09:28 Dose: 100 mls/hr Lorazepam (Ativan) 1 mg IVP Q4 PRN PRN Reason: Symptoms of alcohol withdrawl Morphine Sulfate (Morphine) 2 mg IVP Q4 PRN PRN Reason: Pain, moderate (4-7) Pantoprazole Sodium (Protonix Inj) 40 mg IVP DAILY [facility] Last Admin: 12/22/16 09:18 Dose: 40 mg Thiamine HCl (Vitamin B1 Tab) 100 mg PO DAILY [facility] Last Admin: 12/22/16 09:19 Dose: 100 mg - Labs Labs: 12/22/16 06:10 12/22/16 06:10 PT 13.3 SECONDS (9.6-11.2) H 12/18/16 15:50 INR 1.28 (0.92-1.08) H 12/18/16 15:50 - Constitutional Appears: No Acute Distress - Head Exam Head Exam: ATRAUMATIC - Eye Exam Eye Exam: absent: PERRL - ENT Exam ENT Exam: Mucous Membranes Moist - Neck Exam Neck Exam: absent: Meningismus - Respiratory Exam Respiratory Exam: absent: Rhonchi, Wheezes, Respiratory Distress - Cardiovascular Exam Cardiovascular Exam: REGULAR RHYTHM, +S1, +S2 - GI/Abdominal Exam GI & Abdominal Exam: Soft. absent: Tenderness - Rectal Exam Rectal Exam: Deferred - Neurological Exam Neurological Exam: Alert, Oriented x3 - Psychiatric Exam Psychiatric exam: Normal Affect - Skin Skin Exam: Dry, Intact Assessment and Plan - Assessment and Plan (Free Text) Assessment: 36 yo male with history of HIV, not on HAART and Alcohol abuse came in because of fever, abd pain, nausea /vomiting. (1) Pancreatitis, alcoholic, acute CT scan of chest showed : Severe pancreatitis with moderate areas of peripancreatic phlegmon and inflammatory change. Secondary duodenitis. Mild ileus. No portal vein or splenic vein thrombus. Minor left effusion. continue IV Zosyn and Flagyl GI consulted: Dr Minor Lipase going back up, but patient feeling bettery tolerated bland diet (2) Sepsis Pt still having low grade fever ID: Dr Leyva WBC coming down now to 10.9 on IV Zosyn and Flagyl Cultures: no growth (3) Hyponatremia went up yesterday but now it is back down again to 124 continue fluid restriction (4) HIV (human immunodeficiency virus infection) was on HAART 3 yrs ago , his viral load was undetectable however he stopped all his meds and never followed up at [facility] HIV clinic CD4 Th=570 Viral load = 3.5 SW consulted- [facility] will come in am to see pt (6) Alcohol Abuse no signs of withdrawal Ativan prn started Thiamine and FA (7) Hypokalemia KDur 20meq PO BMP in am (8) Transaminitis still going up cont to monitor
[2016-12-22] MEDS ORDERED: Potassium Chloride 20 mEq ER Tab PO ONE (17:54)
[2016-12-23] MEDS: metroNIDAZOLE 500mg/100ml NS 100 ML IVPB SCH ×3 (01:00→18:07)
[2016-12-23] MEDS: Piperacillin/Tazobact 3.375 GM in Sodium Chloride 0.9% 100 ML IVPB SCH ×3 (04:21→16:43)
[2016-12-23 08:24] VITALS: O2SAT 98
[2016-12-23 08:57] LABS: BLOOD UREA NITROGEN 8 mg/dl (9-20); CALCIUM 8.3 mg/dL (8.4-10.2); CARBON DIOXIDE 26 mmol/L (22-30); CHLORIDE 99 mmol/L (98-107); GFR AFRICAN-AMERICAN > 60; GLUCOSE,RANDOM 100 mg/dL (75-110); SODIUM 130 mmol/l (132-148)
[2016-12-23] MEDS: Enoxaparin 40 mg Syringe SC SCH (09:52)
[2016-12-23 16:21] VITALS: RESP 18
--- NOTE | 2016-12-23 19:36 | CP.PCM.DIS ---
Provider - Provider Date of Admission: 12/17/16 22:02 Attending physician: Chandler Marinelli MD Consults: Dr Gordon Minor Time Spent in preparation of Discharge (in minutes): 35 Diagnosis - Discharge Diagnosis (1) Pancreatitis, alcoholic, acute Status: Acute Comment: CT scan of chest showed : Severe pancreatitis with moderate areas of peripancreatic phlegmon and inflammatory change. Secondary duodenitis. Mild ileus. No portal vein or splenic vein thrombus. Minor left effusion. received IV Zosyn and Flagyl. patient denied abdominal pain or tenderness. has not complained of nausea and vomiting for more than 2 days. discharge with PO Cipro and PO Flagyl (2) Sepsis Status: Suspected Comment: afebrile more than 48 hrs. WBC down to normal level. received IV Zosyn and Flagyl (3) Alcohol abuse Status: Chronic Comment: continue Thiamine and Folic Acid (4) HIV (human immunodeficiency virus infection) Status: Chronic Comment: need follow up with [facility] Course - Lab Results Lab Results: Micro Results 12/20/16 11:00 Stool Stool Culture - Final NO SALMONELLA, SHIGELLA OR CAMPYLOBACTER ISOLATED. 12/20/16 11:00 Stool Ova and Parasite Concentrate Exam - Final Most Recent Lab Values WBC 10.9 K/uL (4.8-10.8) H 12/22/16 06:10 RBC 3.26 Mil/uL (4.40-5.90) L 12/22/16 06:10 Hgb 10.7 g/dL (12.0-18.0) L 12/22/16 06:10 Hct 30.9 % (35.0-51.0) L 12/22/16 06:10 MCV 95.0 fl (80.0-94.0) H 12/22/16 06:10 MCH 32.9 pg (27.0-31.0) H 12/22/16 06:10 MCHC 34.6 g/dL (33.0-37.0) 12/22/16 06:10 RDW 13.5 % (11.5-14.5) 12/22/16 06:10 Plt Count 448 K/uL (130-400) H 12/22/16 06:10 MPV 7.1 fl (7.2-11.7) L 12/22/16 06:10 Neut % (Auto) 79.9 % (50.0-75.0) H 12/22/16 06:10 Lymph % (Auto) 12.7 % (20.0-40.0) L 12/22/16 06:10 [place] % (Auto) 6.3 % (0.0-10.0) 12/22/16 06:10 Eos % (Auto) 0.8 % (0.0-4.0) 12/22/16 06:10 Baso % (Auto) 0.3 % (0.0-2.0) 12/22/16 06:10 Neut # 8.7 K/uL (1.8-7.0) H 12/22/16 06:10 Lymph # 1.4 K/uL (1.0-4.3) 12/22/16 06:10 [place] # 0.7 K/uL (0.0-0.8) 12/22/16 06:10 Eos # 0.1 K/uL (0.0-0.7) 12/22/16 06:10 Baso # 0.0 K/uL (0.0-0.2) 12/22/16 06:10 PT 13.3 SECONDS (9.6-11.2) H 12/18/16 15:50 INR 1.28 (0.92-1.08) H 12/18/16 15:50 D-Dimer, Quantitative 13.10 mg/L FEU (0-0.50) H 12/17/16 21:15 pO2 28 mm/Hg (30-55) L 12/17/16 21:27 VBG pH 7.40 (7.32-7.43) 12/17/16 21:27 VBG pCO2 46 mmHg (40-60) 12/17/16 21:27 VBG HCO3 26.0 mmol/L 12/17/16 21:27 VBG Total CO2 29.9 mmol/L (22-28) H 12/17/16 21:27 VBG O2 Sat (Calc) 55.6 % (40-65) 12/17/16 21:27 VBG Base Excess 3.0 mmol/L (0.0-2.0) H 12/17/16 21:27 VBG Potassium 3.0 mmol/L (3.6-5.2) L 12/17/16 21:27 Sodium 123.0 mmol/L (132-148) L 12/17/16 21:27 Chloride 88.0 mmol/L (98-107) L 12/17/16 21:27 Glucose 136 mg/dL (75-110) H 12/17/16 21:27 Lactate 2.6 mmol/L (0.7-2.1) H 12/17/16 21:27 FiO2 21.0 % 12/17/16 21:27 Sodium 130 mmol/l (132-148) L 12/23/16 08:31 Potassium 4.0 MMOL/L (3.6-5.0) 12/23/16 08:31 Chloride 99 mmol/L (98-107) 12/23/16 08:31 Carbon Dioxide 26 mmol/L (22-30) 12/23/16 08:31 Anion Gap 9 (10-20) L 12/23/16 08:31 BUN 8 mg/dl (9-20) L 12/23/16 08:31 Creatinine 0.7 mg/dL (0.8-1.5) L 12/23/16 08:31 Est GFR ( Amer) > 60 12/23/16 08:31 Est GFR (Non-Af Amer) > 60 12/23/16 08:31 Random Glucose 100 mg/dL (75-110) 12/23/16 08:31 Serum Osmolality 261 mosm/kg (272-300) L 12/17/16 06:02 Lactic Acid 0.7 MMOL/L (0.7-2.1) 12/18/16 01:14 Calcium 8.3 mg/dL (8.4-10.2) L 12/23/16 08:31 Phosphorus 2.2 mg/dl (2.5-4.5) L 12/19/16 08:00 Magnesium 1.8 MG/DL (1.6-2.3) 12/18/16 07:45 Total Bilirubin 0.5 mg/dl (0.2-1.3) 12/22/16 06:10 Direct Bilirubin 0.4 mg/ml (0.0-0.4) 12/18/16 07:45 AST 144 U/L (17-59) H D 12/22/16 06:10 ALT 123 U/L (21-72) H D 12/22/16 06:10 Alkaline Phosphatase 96 U/L (38-126) 12/22/16 06:10 Lactate Dehydrogenase 1605 U/L (313-618) H 12/18/16 07:45 Troponin I 0.0130 ng/mL (0.00-0.120) 12/17/16 21:15 Total Protein 6.7 G/DL (6.3-8.2) 12/22/16 06:10 Albumin 2.8 g/dL (3.5-5.0) L 12/22/16 06:10 Globulin 3.8 gm/dL (2.2-3.9) 12/22/16 06:10 Albumin/Globulin Ratio 0.7 (1.0-2.1) L 12/22/16 06:10 Triglycerides 129 mg/DL (0-149) 12/20/16 05:45 Cholesterol 92 mg/dL (0-199) 12/20/16 05:45 LDL Cholesterol Direct 56 mg/dL (0-129) 12/20/16 05:45 HDL Cholesterol 12 MG/DL (30-70) L 12/20/16 05:45 Lipase 411 U/L (23-300) H 12/22/16 06:10 TSH 3rd Generation 2.31 mIU/ML (0.46-4.68) 12/17/16 06:02 Venous Blood Potassium 3.0 mmol/L (3.6-5.2) L 12/17/16 21:27 Urine Color Carmen (YELLOW) 12/17/16 20:50 Urine Clarity Slighty-cloudy (Clear) 12/17/16 20:50 Urine pH 6.0 (5.0-8.0) 12/17/16 20:50 Ur Specific [place] 1.019 (1.003-1.030) 12/17/16 20:50 Urine Protein 100 mg/dL (NEGATIVE) 12/17/16 20:50 Urine Glucose (UA) Neg mg/dL (Normal) 12/17/16 20:50 Urine Ketones 20 mg/dL (NEGATIVE) 12/17/16 20:50 Urine Blood Small (NEGATIVE) 12/17/16 20:50 Urine Nitrate Negative (NEGATIVE) 12/17/16 20:50 Urine Bilirubin Negative (NEGATIVE) 12/17/16 20:50 Urine Urobilinogen 2.0 mg/dL (0.2-1.0) 12/17/16 20:50 Ur Leukocyte Esterase Neg Jean Paul/uL (Negative) 12/17/16 20:50 Urine RBC (Auto) 7 /hpf (0-3) H 12/17/16 20:50 Urine Microscopic WBC 24 /hpf (0-5) H 12/17/16 20:50 Ur Squamous Epith Cells < 1 /hpf (0-5) 12/17/16 20:50 Urine Bacteria Rare (<OCC) 12/17/16 20:50 Stl Cryptosporidium Ag Not detected (Not detected) 12/20/16 11:00 Stl Giardia Antigen TEST NOT PERFORMED 12/20/16 11:00 Urine Opiates Screen Negative (NEGATIVE) 12/17/16 20:50 Urine Methadone Screen Negative (NEGATIVE) 12/17/16 20:50 Ur Barbiturates Screen Negative (NEGATIVE) 12/17/16 20:50 Ur Phencyclidine Scrn Negative (NEGATIVE) 12/17/16 20:50 Ur Amphetamines Screen Negative (NEGATIVE) 12/17/16 20:50 U Benzodiazepines Scrn Negative (NEGATIVE) 12/17/16 20:50 U Oth Cocaine Metabols Negative (NEGATIVE) 12/17/16 20:50 U Cannabinoids Screen Negative (NEGATIVE) 12/17/16 20:50 Alcohol, Quantitative < 10 mg/dl (0-10) 12/17/16 21:15 Absolute Lymphs (Flow) 1345 Cells/mcL (850-3900) 12/18/16 07:45 % CD4 Cells 25 Percent (30-61) L 12/18/16 07:45 Absolute CD4 Count 336 Cells/mcL (490-1740) L 12/18/16 07:45 T-Help/Suppress Ratio 0.40 Ratio (0.86-5.00) L 12/18/16 07:45 % CD8 Cells 62 Percent (12-42) H 12/18/16 07:45 Absolute CD8 Count 835 Cells/mcL (180-1170) 12/18/16 07:45 C. difficile Ag & Toxin Negative (NEGATIVE) 12/20/16 11:00 Cryptosp/Giardia Source Stool (()) 12/20/16 11:00 Giardia Antigen Not detected (Not Detected) 12/20/16 11:00 Hepatitis A IgM Ab Negative (NEGATIVE) 12/18/16 07:45 Hep Bs Antigen Negative (NEGATIVE) 12/18/16 07:45 Hep B Core IgM Ab Negative (NEGATIVE) 12/18/16 07:45 Hepatitis C Antibody Negative (NEGATIVE) 12/18/16 07:45 HIV-1 RNA Qnt (RT-PCR) 3.57 (<1.30) H 12/18/16 07:45 - Hospital Course Hospital Course: 36 yo male with history of HIV and Alcohol Abuse admitted because of abdominal pain and back pain accompanied with fever and chills. Patient also had nausea and vomiting. Serum Lipase was elevated and CT scan showed peripancreatic phlegmon and inflammatory changes. Pt was diagnosed with Sepsis and Severe Pancreatitis. He was started on IV Zosyn and Flagyl and IV hydration. His condition improved and now was ready for discharge. Discharge Exam - Head Exam Head Exam: ATRAUMATIC - Eye Exam Eye Exam: absent: Scleral icterus - ENT Exam ENT Exam: Mucous Membranes Moist - Respiratory Exam Respiratory Exam: absent: Wheezes, Respiratory Distress, Stridor - Cardiovascular Exam Cardiovascular Exam: REGULAR RHYTHM, +S1, +S2 - GI/Abdominal Exam GI & Abdominal Exam: Soft. absent: Tenderness - Rectal Exam Rectal Exam: Deferred - Neurological Exam Neurological exam: Alert, Oriented x3 - Psychiatric Exam Psychiatric exam: Normal Affect - Skin Skin Exam: Dry, Intact Discharge Plan - Discharge Medications Prescriptions: Ciprofloxacin [Cipro] 500 mg PO BID #20 tab metroNIDAZOLE [Flagyl] 500 mg PO TID #30 tab - Follow Up Plan Condition: STABLE Disposition: HOME/ ROUTINE Additional Instructions: follow up with Dr Minor and PCP at [facility]
[2016-12-23 20:11] VITALS: BP 115/79; PULSE 81; TEMP 98.7
[2016-12-24] MEDS ORDERED: Pantoprazole 40 mg EC Tab PO SCH (09:00)
--- NOTE | 2016-12-24 13:48 | PQF HIV ---
Dr. Marinelli HIV is documented in the medical record. Please clarify below if the pt has a diagnosis of asymptomatic HIV or AIDS. This form is a permanent part of the medical record Clarification of your documentation is requested to better reflect the severity of illness and intensity of treatment of your patient. Indicators present [X] Documented diagnosis of HIV [] CD4 count: [] [] Other: [] Location in the medical record that reflects the above clinical findings: [] Other Treatment Provided: [] PHYSICIAN'S RESPONSE If possible, based on your medical judgment, please clarify the clinical classification for this patient. [] Asymptomatic HIV Status: without any history of (or current) AIDS Defining Illnesses of HIV-Related Illness [] AIDS: Meets the current CDC Definition of AIDS HIV-Infected persons who HAVE OR HAVE HAD less than 200 CD4+ T-lymphocytes/uL or CD4+ T-lymphocyte percentage of total lymphocytes of less than 14, AND/OR an AIDS-Defining or HIV-Related Disease. See reverse side for examples. Per CDC publication Vol 60 RR-17 : Relating to the classification HIV Infection , once a patient is diagnosed with AIDS the diagnosis still stands even if, after treatment, the CD4+ T cell count rises above 200 per uL of blood or other AIDS-defining illnesses are cured. [] If unable to determine, please check the box, sign and date. In responding to this query, please exercise your independent professional judgment. The fact that a question is asked does not imply that any particular answer is desired or expected. Thank you for your clarification on this documentation. 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 The following are AIDS-Defining Illnesses or HIV-Related Diseases: Candidiasis of bronchi, trachea, or lungs Candidiasis, esophageal Cervical cancer, invasive * Coccidioidomycosis, disseminated or extrapulmonary Cryptococcosis, extrapulmonary Cryptosporidiosis, chronic intestinal (greater than 1 month's duration) Cytomegalovirus disease (other than liver, spleen, or nodes) Cytomegalovirus retinitis (with loss of vision) Encephalopathy, HIV-related Herpes simplex: chronic ulcer(s) (greater than 1 month's duration); or bronchitis, pneumonitis, or esophagitis Histoplasmosis, disseminated or extrapulmonary Isosporiasis, chronic intestinal (greater than 1 month's duration) Kaposi's sarcoma Lymphoma, Burkitt's (or equivalent term) Lymphoma, immunoblastic (or equivalent term) Lymphoma, primary, of brain Mycobacterium avium complex or M. 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
== END 2016-12-23 20:30 | disposition home or self-care (01) | DRG 714 ==
LOC: H.ER 19:39 → H.ERHOLD 22:02 → H.TEL 12-18 02:31
PROVIDERS: ADMIT Internal Medicine; ATTEND Internal Medicine
DX: A41.9 Sepsis, unspecified organism (principal); Z21 Asymptomatic human immunodeficiency virus [HIV] infection status; K85.20 Alcohol induced acute pancreatitis without necrosis or infection; E87.1 Hypo-osmolality and hyponatremia; E83.39 Other disorders of phosphorus metabolism; E87.6 Hypokalemia; N39.0 Urinary tract infection, site not specified; Z91.19 Patient's noncompliance with other medical treatment and regimen; R19.7 Diarrhea, unspecified

== ENCOUNTER 2019-02-27 15:16 | Observation (INO) | payer OTHER ==
[2019-02-27 15:21] VITALS: BMI 34.7
[2019-02-27] MEDS ORDERED: Thiamine 100 mg/ml Inj IM ONE (16:06)
[2019-02-27] MEDS ORDERED: Thiamine 100 mg/ml Inj ONE (16:56)
--- NOTE | 2019-02-27 16:59 | ED PDOC ---
HPI: General Adult Time Seen by Provider: 02/27/19 16:05 Chief Complaint (Nursing): Weakness/Neurological Deficit Chief Complaint (Provider): im shaky and anxious History Per: Patient, Family (brother) History/Exam Limitations: no limitations Current Symptoms Are (Timing): Still Present Severity: Moderate Additional Complaint(s): 38yo male c/o recently stopped drinking, anxiety, tremors, poor sleep and mild nausea. Denies headache, hallucinations, syncope or drug use. Per brother has been depressed but patient denies depression or suidical thoughts. Admits to being recently noncompliant w HIV meds. Past Medical History Reviewed: Historical Data, Nursing Documentation, Vital Signs Vital Signs: Last Vital Signs Temp 99.5 F 02/27/19 15:20 Pulse 96 H 02/27/19 15:20 Resp 16 02/27/19 15:20 BP 149/96 H 02/27/19 15:20 Pulse Ox 96 02/27/19 15:20 Primary Care Provider: Jenelle Guzman - Medical History PMH: Anxiety, HIV, HTN Denies: Chronic Kidney Disease - Family History Family History: States: Unknown Family Hx - Living Arrangements Living Arrangements: With Family - Social History Alcohol: > 2 Drinks/Day Drugs: Denies - Home Medications Home Medications: Ambulatory Orders Medication Instructions Recorded Ciprofloxacin [Cipro] 500 mg PO BID #20 tab 12/23/16 Folic Acid 1 mg PO DAILY tab 12/23/16 Thiamine [Vitamin B1 Tab] 100 mg PO DAILY tab 12/23/16 metroNIDAZOLE [Flagyl] 500 mg PO TID #30 tab 12/23/16 - Allergies Allergies/Adverse Reactions: Allergies Allergy/AdvReac Type Severity Reaction Status Date / Time No Known Allergies Allergy Verified 02/27/19 15:48 Review of Systems ROS Statement: Except As Marked, All Systems Reviewed And Found Negative Constitutional: Negative for: Fever Cardiovascular: Positive for: Chest Pain, Palpitations Respiratory: Negative for: Shortness of Breath Gastrointestinal: Positive for: Nausea. Negative for: Abdominal Pain Genitourinary Male: Negative for: Dysuria Musculoskeletal: Negative for: Neck Pain, Back Pain Skin: Negative for: Rash, Lesions Neurological: Positive for: Dizziness. Negative for: Weakness, Seizures, Altered Mental Status Psych: Positive for: Anxiety, Withdrawal. Negative for: Suicidal ideation Physical Exam - Reviewed Nursing Documentation Reviewed: Yes Vital Signs Reviewed: Yes - Physical Exam Appears: Positive for: Non-toxic (+resting tremor), No Acute Distress Head Exam: Positive for: ATRAUMATIC, NORMAL INSPECTION, NORMOCEPHALIC Skin: Positive for: Normal Color, Warm, DRY Eye Exam: Positive for: EOMI, Normal appearance, PERRL ENT: Positive for: Normal ENT Inspection Neck: Positive for: Normal, Painless ROM Cardiovascular/Chest: Positive for: Regular Rate, Rhythm, Tachycardia Respiratory: Positive for: CNT, Normal Breath Sounds Gastrointestinal/Abdominal: Positive for: Soft. Negative for: Tenderness, Guarding Back: Positive for: Normal Inspection Extremity: Positive for: Normal ROM Neurological/Psych: Positive for: Awake, Alert, Normal Tone, Oriented, Mood/Affect (anxious). Negative for: Lethargic, Listless, Facial Droop - Laboratory Results Result Diagrams: 02/27/19 17:33 02/27/19 17:33 - ECG O2 Sat by Pulse Oximetry: 96 Medical Decision Making Medical Decision Making: workup for anxiety/alcohol withdrawal initiated EKG reviewed reveals rapid afib w RVR at 140bpm cardizem 10mg IV ordered labs reviewed revealing profound hypomagnesemia, 2gm Mgsulfate ordered Admit hospitalist for Dr Lazo Disposition - Clinical Impression Clinical Impression: Hypomagnesemia, Atrial fibrillation with rapid ventricular response, HIV (human immunodeficiency virus infection), Alcohol withdrawal - Patient ED Disposition Is Patient to be Admitted: Yes - Disposition Disposition Time: 18:00 Condition: FAIR - Pt Status Changed To: Hospital Disposition Of: Inpatient - Admit Certification Admit to Inpatient:: After my assessment, the patient will require hospitalization for at least two midnights. This is because of the severity of symptoms shown, intensity of services needed, and/or the medical risk in this patient being treated as an outpatient.
[2019-02-27 17:37] LABS: BASO % 0.1 % (0.0-2.0); HEMOGLOBIN 10.9 g/dL (12.0-18.0); LYMPH # 0.3 K/uL (1.0-4.3); LYMPH % 5.5 % (20.0-40.0); MEAN CELL VOLUME 100.5 fl (80.0-94.0); MEAN CORPUSCULAR HEMOGLOBIN 33.3 pg (27.0-31.0); MEAN CORPUSCULAR HGB CONC 33.1 g/dL (33.0-37.0); MEAN PLATELET VOLUME 9.5 fl (7.2-11.7); MONO # 0.2 K/uL (0.0-0.8); MONO % 3.8 % (0.0-10.0); NEUT # 5.2 K/uL (1.8-7.0); NEUT % 90.6 % (50.0-75.0); NRBC % 0.1 % (0.0-0.0); PLATELET COUNT 31 K/uL (130-400); RBC 3.29 Mil/uL (4.40-5.90); RED CELL DISTRIBUTION WIDTH 14.9 % (11.5-14.5); WHITE BLOOD COUNT 5.7 K/uL (4.8-10.8)
[2019-02-27 18:07] LABS: ALBUMIN 4.4 g/dL (3.5-5.0); ALT/SGPT 409 U/L (21-72); AST/SGOT 1265 U/L (17-59); BLOOD UREA NITROGEN 6 mg/dl (9-20); CALCIUM 8.2 mg/dL (8.4-10.2); GFR NON-AFRICAN AMERICAN > 60; LIPASE 264 U/L (23-300)
[2019-02-27] MEDS ORDERED: Magnesium Sulfate 2 gm/50 ml 2 GM/50 ML BAG IVPB ONE (18:13)
[2019-02-27] MEDS ORDERED: Multivitamin (MVI) 10 ML, Thiamine 100 MG, Folic Acid 1 MG in Sodium Chloride 0.9% 1,00... IV ONE (18:17)
[2019-02-27] MEDS ORDERED: Magnesium Sulfate 2 gm/50 ml 2 GM/50 ML BAG ONE (18:29)
[2019-02-27] MEDS ORDERED: Potassium Chloride 20 mEq ER Tab PO ONE ×2 (18:43→19:19)
--- NOTE | 2019-02-27 18:55 | RAD ---
Date of service: 02/27/2019 HISTORY: SOB COMPARISON: 12/17/2018. FINDINGS: LUNGS: There are low lung volumes. The lungs are clear. PLEURA: No pleural effusions or pneumothorax. CARDIOVASCULAR: Apparent mild cardiomegaly. No aortic atherosclerotic calcifications present. OSSEOUS STRUCTURES: Within normal limits for the patient's age. VISUALIZED UPPER ABDOMEN: Normal. OTHER FINDINGS: None. IMPRESSION: No acute findings. Low lung volumes may be related to poor inspiratory effort.
--- NOTE | 2019-02-27 19:29 | CP.PCM.HP ---
Past Patient History - Past Medical History & Family History Past Medical History?: Yes - Past Social History Alcohol: > 2 Drinks/Day Drugs: Denies - CARDIAC Hx Hypertension: Yes - PULMONARY Hx Respiratory Disorders: No - NEUROLOGICAL Hx Neurological Disorder: No - HEENT Hx HEENT Problems: No - RENAL Hx Chronic Kidney Disease: No - ENDOCRINE/METABOLIC Hx Endocrine Disorders: No - HEMATOLOGICAL/ONCOLOGICAL Hx Human Immunodeficiency Virus (HIV): Yes - MUSCULOSKELETAL/RHEUMATOLOGICAL Hx Musculoskeletal Disorders: No Hx Falls: No - PSYCHIATRIC Hx Anxiety: Yes - ANESTHESIA Hx Anesthesia: No Meds Allergies/Adverse Reactions: Allergies Allergy/AdvReac Type Severity Reaction Status Date / Time No Known Allergies Allergy Verified 02/27/19 15:48 Results - Vital Signs Recent Vital Signs: Last Vital Signs Temp 99.0 F 02/27/19 19:24 Pulse 122 H 02/27/19 19:24 Resp 18 02/27/19 19:24 BP 146/92 H 02/27/19 19:24 Pulse Ox 98 02/27/19 19:24 - Labs Result Diagrams: 02/27/19 17:33 02/27/19 17:33 Labs: Laboratory Results - last 24 hr 02/27/19 02/27/19 17:33 17:33 WBC 5.7 RBC 3.29 L Hgb 10.9 L D Hct 33.1 L MCV 100.5 H D MCH 33.3 H MCHC 33.1 RDW 14.9 H Plt Count 31 L D MPV 9.5 Neut % (Auto) 90.6 H Lymph % (Auto) 5.5 L [place] % (Auto) 3.8 Eos % (Auto) 0.0 Baso % (Auto) 0.1 Neut # (Auto) 5.2 Lymph # (Auto) 0.3 L [place] # (Auto) 0.2 Eos # (Auto) 0.0 Baso # (Auto) 0.0 Sodium 132 Potassium 3.4 L Chloride 90 L Carbon Dioxide 19 L Anion Gap 26 H BUN 6 L Creatinine 1.0 Est GFR ( Amer) > 60 Est GFR (Non-Af Amer) > 60 Random Glucose 228 H Calcium 8.2 L Magnesium 0.8 L* D Total Bilirubin 3.3 H AST 1265 H ALT 409 H D Alkaline Phosphatase 108 Troponin I 0.0210 Total Protein 8.6 H Albumin 4.4 Globulin 4.3 H Albumin/Globulin Ratio 1.0 Lipase 264 Alcohol, Quantitative < 10
[2019-02-27 19:39] LABS: BANDS 3 % (0-2); LYMPHOCYTE 6 % (20-50); MONOCYTE 2 % (0-10); NEUTROPHIL 89 % (42-75); TOTAL CELLS COUNTED 100
[2019-02-27 19:40] LABS: ANISOCYTOSIS SLIGHT; HYPOCHROMIC SLIGHT; PLATELET ESTIMATE MARKEDLY DECREASED (NORMAL); STOMATOCYTES SLIGHT
[2019-02-27 19:41] LABS: GIANT PLATELETS PRESENT; LARGE PLATELETS PRESENT
--- NOTE | 2019-02-27 20:18 | CP.PCM.HP ---
History of Present Illness - History of Present Illness History of Present Illness: 38 y/o male with PMH ETOH abuse, HIV ( undetectable viral load ), HTN, anemia brought to ER by EMS for evaluation for tremors and agitation . History obtained from patient . As per patient he visited his brother today who noticed patient to be very shaky and tremulous and asked him to go to hospital.Last drink was 2 days ago. Patient states that he drinks 4 days/ week 2 glasses of vodka and that he gets shaky and tremulous when stops drinking. When brought to Er found to be afib on monitor with HR 120-140. Patient states that he was having some mid chest pain , pressure like prior to arrival with no SOB and radiation . He denies any palpitation, dizziness, MORAN, blurry vision , fever, chills, respiratory symptoms, urinary symptoms or changes in bowel movement. Denies any weight gain or loss, hot or cold intolerance Denies being depressed , denies visual or auditory hallucinations. Allergies ; NKDA PMH ; alcoholism, HIV ( viral load undetectable)HTN, Anemia Surgery ; None Medications; will verify with his pharmacy ( does not remember) Family history ; Mother has COPD, sleep apnea, Hypothyroid, HTN , CHF Social history ; Lives by himself [place] [facility], single, not working at present , does not smoke, ETOH - drinks 2 glasses of vodka 4 days/ week, denies any drug abuse ROS ; feeling anxious at present 14 point review of system negative except above Code status : Full Next of kin ; Mother PMD; Dr Guzman Present on Admission - Present on Admission Any Indicators Present on Admission: No Review of Systems - Review of Systems All systems: reviewed and no additional remarkable complaints except Past Patient History - Past Medical History & Family History Past Medical History?: Yes - Past Social History Smoking Status: Never Smoked Chewing Tobacco Use: No Cigar Use: No Alcohol: > 2 Drinks/Day Drugs: Denies - CARDIAC Hx Hypertension: Yes - PULMONARY Hx Respiratory Disorders: No - NEUROLOGICAL Hx Neurological Disorder: No - HEENT Hx HEENT Problems: No - RENAL Hx Chronic Kidney Disease: No - ENDOCRINE/METABOLIC Hx Endocrine Disorders: No - HEMATOLOGICAL/ONCOLOGICAL Hx Human Immunodeficiency Virus (HIV): Yes - MUSCULOSKELETAL/RHEUMATOLOGICAL Hx Musculoskeletal Disorders: No Hx Falls: No - PSYCHIATRIC Hx Anxiety: Yes - ANESTHESIA Hx Anesthesia: No Meds Allergies/Adverse Reactions: Allergies Allergy/AdvReac Type Severity Reaction Status Date / Time No Known Allergies Allergy Verified 02/27/19 15:48 Physical Exam - Constitutional Appears: Other (tremulous, anxious) - Head Exam Head Exam: ATRAUMATIC, NORMOCEPHALIC - Eye Exam Eye Exam: EOMI, PERRL Pupil Exam: NORMAL ACCOMODATION - ENT Exam ENT Exam: Mucous Membranes Moist, Normal Exam - Neck Exam Neck exam: Positive for: Normal Inspection - Respiratory Exam Respiratory Exam: Clear to Auscultation Bilateral, NORMAL BREATHING PATTERN. absent: Rales, Rhonchi, Wheezes - Cardiovascular Exam Cardiovascular Exam: Tachycardia, Irregular Rhythm - GI/Abdominal Exam GI & Abdominal Exam: Normal Bowel Sounds, Soft. absent: Guarding, Rebound, Tenderness - Extremities Exam Extremities exam: Positive for: normal capillary refill, normal inspection, pedal pulses present. Negative for: calf tenderness, pedal edema - Back Exam Back exam: NORMAL INSPECTION - Neurological Exam Neurological exam: Alert, CN II-XII Intact, Oriented x3 - Psychiatric Exam Psychiatric exam: Anxious Additional comments: tremulous - Skin Skin Exam: Dry, Warm Additional comments: bruises to his forearms Results - Vital Signs Recent Vital Signs: Last Vital Signs Temp 99.0 F 02/27/19 19:24 Pulse 122 H 02/27/19 19:24 Resp 18 02/27/19 19:24 BP 146/92 H 02/27/19 19:24 Pulse Ox 98 02/27/19 19:24 - Labs Result Diagrams: 02/27/19 17:33 02/27/19 17:33 Labs: Laboratory Results - last 24 hr 02/27/19 02/27/19 17:33 17:33 WBC 5.7 RBC 3.29 L Hgb 10.9 L D Hct 33.1 L MCV 100.5 H D MCH 33.3 H MCHC 33.1 RDW 14.9 H Plt Count 31 L D MPV 9.5 Neut % (Auto) 90.6 H Lymph % (Auto) 5.5 L [place] % (Auto) 3.8 Eos % (Auto) 0.0 Baso % (Auto) 0.1 Neut # (Auto) 5.2 Lymph # (Auto) 0.3 L [place] # (Auto) 0.2 Eos # (Auto) 0.0 Baso # (Auto) 0.0 Neutrophils % (Manual) 89 H Band Neutrophils % 3 H Lymphocytes % (Manual) 6 L Monocytes % (Manual) 2 Platelet Estimate Markedly decreased L Large Platelets Present Giant Platelets Present Hypochromasia (manual) Slight Anisocytosis (manual) Slight Stomatocytes Slight Sodium 132 Potassium 3.4 L Chloride 90 L Carbon Dioxide 19 L Anion Gap 26 H BUN 6 L Creatinine 1.0 Est GFR ( Amer) > 60 Est GFR (Non-Af Amer) > 60 Random Glucose 228 H Calcium 8.2 L Magnesium 0.8 L* D Total Bilirubin 3.3 H AST 1265 H ALT 409 H D Alkaline Phosphatase 108 Troponin I 0.0210 Total Protein 8.6 H Albumin 4.4 Globulin 4.3 H Albumin/Globulin Ratio 1.0 Lipase 264 Alcohol, Quantitative < 10 Assessment & Plan - Assessment and Plan (Free Text) Assessment: 38 y/o male with PMH ETOH abuse, HIV ( undetectable viral load ), HTN, anemia, fatty liver secondary to ETOH abuse, anxiety brought to ER by EMS for evaluation for tremors and agitation .Last drink was 2 days ago. physical exam positive for hand tremors and anxiety In ER found to be in Afib with RVR BMP significant for Mg 0.8 AST/ ALT 1265/407 [place] 3.3 AG 26 K 3.4 Plt 31 K hgb 10.9 WBC 5.7 Patient to be admitted in telemetry for New onset Afib with RVR, Alcohol withdrawal with impending DT-s and electrolyte abnormalities 1. New Onset Afib with RVR admit patient to telemetry Start IVF 1 L NS bolus cardizem 10 mg IV stat Start cardiezem Drip Replace MG and K Send Trop Q8 hours Check TSH and order ECHo cardiology eval No need for anticoagulation Will start ASA 2.Alcoholism/ ETOH withdrawal/ Impending DT-s Start Ativan 2 mg PO Q6 hours Hold Librium due to elevated LFT-s Strat MVI/Thiamine . Folic acid in IVF 3. Dehydration Strat IVF 4. Hypomagnesemia / hypokalemia Replace stat with 4 g Mg IV and K Repeat BMP in 6 hours 5. HTN 6. HIV asymptomatic viral load undetected Will need to verify list of medications with his pharmacy 7. Alcoholic liver disease Kend[place] 3.3 ASt/ ALT 1265/ 407 Check PT/ INR Hepatitis panel Liver US Send ammonia level 8. Anemia and thrombocytopenia chronic secondary to ETOh abuse Monitor for now 9. DVT prophylaxis SCD hold anticoagulation due to thrombocytopenia
[2019-02-27] MEDS ORDERED: Magnesium Sulfate 4 gm/100 ml 4 GM/100 ML BAG IVPB ONE (20:54)
[2019-02-27] MEDS ORDERED: Sodium Chloride 0.9% 1,000 ML IV SCH (21:00)
[2019-02-27] MEDS ORDERED: Potassium Ch 20mEq in D5-1/2NS 1,000 ML IV SCH (22:00)
[2019-02-28 06:18] LABS: ALBUMIN 3.9 g/dL (3.5-5.0); ALT/SGPT 328 U/L (21-72); BLOOD UREA NITROGEN 6 mg/dl (9-20); CALCIUM 7.8 mg/dL (8.4-10.2); GFR NON-AFRICAN AMERICAN > 60; HDL CHOLESTEROL 17 MG/DL (30-70)
[2019-02-28 06:19] LABS: BASO % 0.2 % (0.0-2.0); EOS % 0.1 % (0.0-4.0); HEMOGLOBIN 10.7 g/dL (12.0-18.0); LYMPH # 0.5 K/uL (1.0-4.3); LYMPH % 13.7 % (20.0-40.0); MEAN CELL VOLUME 100.2 fl (80.0-94.0); MEAN CORPUSCULAR HEMOGLOBIN 33.5 pg (27.0-31.0); MEAN CORPUSCULAR HGB CONC 33.5 g/dL (33.0-37.0); MEAN PLATELET VOLUME 9.1 fl (7.2-11.7); MONO # 0.2 K/uL (0.0-0.8); MONO % 5.7 % (0.0-10.0); NEUT # 2.7 K/uL (1.8-7.0); NEUT % 80.3 % (50.0-75.0); NRBC % 0.3 % (0.0-0.0); RBC 3.19 Mil/uL (4.40-5.90); RED CELL DISTRIBUTION WIDTH 14.5 % (11.5-14.5); WHITE BLOOD COUNT 3.4 K/uL (4.8-10.8)
[2019-02-28 06:21] LABS: AST/SGOT 927 U/L (17-59)
[2019-02-28 06:31] LABS: LDL CHOLESTEROL 78 mg/dL (0-129)
[2019-02-28] MEDS ORDERED: Potassium Phosphate 30 MMOLE in Sodium Chloride 0.9% 250 ML IV ONE (07:45)
[2019-02-28 08:33] VITALS: RESP 18
[2019-02-28] MEDS ORDERED: Pantoprazole 40 mg EC Tab PO SCH (09:00)
[2019-02-28] MEDS ORDERED: Enoxaparin 40 mg Syringe SC SCH (09:00)
[2019-02-28] MEDS ORDERED: Potassium Chloride 20 mEq ER Tab PO ONE (09:00)
[2019-02-28] MEDS ORDERED: Multivitamin With Minerals Tab PO SCH (09:00)
--- NOTE | 2019-02-28 09:11 | RAD ---
Date of service: 02/27/2019 HISTORY: repeat for abnormal portable COMPARISON: 02/27/2019 at 1818 hr TECHNIQUE: Chest PA and lateral views FINDINGS: LUNGS: No active pulmonary disease. Current lung volumes increased compared to prior study. Current study PA with lateral view. No apical lordotic accentuation as present previously. PLEURA: No significant pleural effusion identified. No pneumothorax apparent. CARDIOVASCULAR: No aortic atherosclerotic calcification present. Normal cardiac size. No pulmonary vascular congestion. OSSEOUS STRUCTURES: No significant abnormalities. VISUALIZED UPPER ABDOMEN: Normal. OTHER FINDINGS: None. IMPRESSION: No active disease.
--- NOTE | 2019-02-28 09:20 | CP.PCM.DIS ---
Provider - Provider Date of Admission: 02/27/19 18:17 Attending physician: Latonia Patterson MD Consults: 02/27/19 20:57 Cardiology Consult Routine Comment: Consulting Provider: Kaden Bynum Consulting Physician: Kaden Bynum Reason for Consult: Afib with RVR 02/28/19 10:00 Pastoral Care Referral Routine Comment: Physician Instructions: Reason For Exam: as per admission Social Work Referral Routine Comment: patient in withdrawal Physician Instructions: Reason For Exam: Alcoholism Time Spent in preparation of Discharge (in minutes): 30 Hospital Course - Lab Results Lab Results: Most Recent Lab Values WBC 3.4 K/uL (4.8-10.8) L 02/28/19 05:15 RBC 3.19 Mil/uL (4.40-5.90) L 02/28/19 05:15 Hgb 10.7 g/dL (12.0-18.0) L 02/28/19 05:15 Hct 31.9 % (35.0-51.0) L 02/28/19 05:15 MCV 100.2 fl (80.0-94.0) H 02/28/19 05:15 MCH 33.5 pg (27.0-31.0) H 02/28/19 05:15 MCHC 33.5 g/dL (33.0-37.0) 02/28/19 05:15 RDW 14.5 % (11.5-14.5) 02/28/19 05:15 Plt Count 19 K/uL (130-400) L* D 02/28/19 05:15 MPV 9.1 fl (7.2-11.7) 02/28/19 05:15 Neut % (Auto) 80.3 % (50.0-75.0) H 02/28/19 05:15 Lymph % (Auto) 13.7 % (20.0-40.0) L 02/28/19 05:15 [place] % (Auto) 5.7 % (0.0-10.0) 02/28/19 05:15 Eos % (Auto) 0.1 % (0.0-4.0) 02/28/19 05:15 Baso % (Auto) 0.2 % (0.0-2.0) 02/28/19 05:15 Neut # (Auto) 2.7 K/uL (1.8-7.0) 02/28/19 05:15 Lymph # (Auto) 0.5 K/uL (1.0-4.3) L 02/28/19 05:15 [place] # (Auto) 0.2 K/uL (0.0-0.8) 02/28/19 05:15 Eos # (Auto) 0.0 K/uL (0.0-0.7) 02/28/19 05:15 Baso # (Auto) 0.0 K/uL (0.0-0.2) 02/28/19 05:15 Neutrophils % (Manual) 89 % (42-75) H 02/27/19 17:33 Band Neutrophils % 3 % (0-2) H 02/27/19 17:33 Lymphocytes % (Manual) 6 % (20-50) L 02/27/19 17:33 Monocytes % (Manual) 2 % (0-10) 02/27/19 17:33 Platelet Estimate Markedly decreased (NORMAL) L 02/27/19 17:33 Large Platelets Present 02/27/19 17:33 Giant Platelets Present 02/27/19 17:33 Hypochromasia (manual) Slight 02/27/19 17:33 Anisocytosis (manual) Slight 02/27/19 17:33 Stomatocytes Slight 02/27/19 17:33 Sodium 134 mmol/l (132-148) 02/28/19 05:15 Potassium 3.2 MMOL/L (3.6-5.0) L 02/28/19 05:15 Chloride 93 mmol/L (98-107) L 02/28/19 05:15 Carbon Dioxide 27 mmol/L (22-30) 02/28/19 05:15 Anion Gap 17 (10-20) 02/28/19 05:15 BUN 6 mg/dl (9-20) L 02/28/19 05:15 Creatinine 0.8 mg/dl (0.8-1.5) 02/28/19 05:15 Est GFR ( Amer) > 60 02/28/19 05:15 Est GFR (Non-Af Amer) > 60 02/28/19 05:15 Random Glucose 134 mg/dL (75-110) H 02/28/19 05:15 Calcium 7.8 mg/dL (8.4-10.2) L 02/28/19 05:15 Phosphorus 0.9 mg/dl (2.5-4.5) L* 02/28/19 05:15 Magnesium 1.7 MG/DL (1.6-2.3) 02/28/19 05:15 Total Bilirubin 3.1 mg/dl (0.2-1.3) H 02/28/19 05:15 AST 927 U/L (17-59) H D 02/28/19 05:15 ALT 328 U/L (21-72) H 02/28/19 05:15 Alkaline Phosphatase 94 U/L (38-126) 02/28/19 05:15 Ammonia 34 umol/L (9-33) H 02/28/19 05:15 Troponin I 0.0310 ng/mL (0.00-0.120) 02/27/19 23:30 Total Protein 7.8 G/DL (6.3-8.2) 02/28/19 05:15 Albumin 3.9 g/dL (3.5-5.0) 02/28/19 05:15 Globulin 3.9 gm/dL (2.2-3.9) 02/28/19 05:15 Albumin/Globulin Ratio 1.0 (1.0-2.1) 02/28/19 05:15 Triglycerides 107 mg/DL (0-149) D 02/28/19 05:15 Cholesterol 120 mg/dL (0-199) 02/28/19 05:15 LDL Cholesterol Direct 78 mg/dL (0-129) 02/28/19 05:15 HDL Cholesterol 17 MG/DL (30-70) L 02/28/19 05:15 Lipase 264 U/L (23-300) 02/27/19 17:33 TSH 3rd Generation 2.83 mIU/ML (0.46-4.68) 02/28/19 05:15 Acetaminophen < 10.0 ug/ml (10.0-30.0) L 02/28/19 05:15 Alcohol, Quantitative < 10 mg/dl (0-10) 02/27/19 17:33 Discharge Exam - Head Exam Head Exam: ATRAUMATIC, NORMOCEPHALIC Discharge Plan - Follow Up Plan Condition: FAIR Disposition: HOME/ ROUTINE
--- NOTE | 2019-02-28 10:26 | CARD ---
APPROVED REPORT Date of service: 02/28/2019 EKG Measurement Heart [id number] <Conclusion> Sinus rhythm with premature atrial complexes Otherwise normal ECG
[2019-02-28] MEDS ORDERED: Magnesium Sulfate 2 gm/50 ml 2 GM/50 ML BAG IVPB ONE (10:46)
--- NOTE | 2019-02-28 10:54 | CARD ---
APPROVED REPORT Date of service: 02/27/2019 EKG Measurement Heart [id number] <Conclusion> Atrial fibrillation with rapid ventricular response Nonspecific ST abnormality Abnormal ECG
--- NOTE | 2019-02-28 11:01 | CARD ---
APPROVED REPORT Date of service: 02/28/2019 EXAM: Two-dimensional and M-mode echocardiogram with Doppler and color Doppler. Other Information Quality : GoodRhythm : Atrial Fibrillation INDICATION Atrial Fibrillation 2D DIMENSIONS IVSd0.90 (0.7-1.1cm)LVDd4.85 (3.9-5.9cm) LVOT Diameter2.39 (1.8-2.4cm)PWd0.94 (0.7-1.1cm) IVSs1.50 (0.8-1.2cm)LVDs2.60 (2.5-4.0cm) FS (%) 46.4 %PWs1.60 (0.8-1.2cm) M-Mode DIMENSIONS Left Atrium (MM)5.47 (2.5-4.0cm)IVSd0.81 (0.7-1.1cm) Aortic Root3.16 (2.2-3.7cm)LVDd6.06 (4.0-5.6cm) Aortic Cusp Exc.2.03 (1.5-2.0cm)PWd0.94 (0.7-1.1cm) IVSs1.56 cmFS (%) 52 % LVDs2.94 (2.0-3.8cm)PWs1.28 cm Aortic Valve AoV Peak Alrocfyg490.1cm/sAoV VTI28.2cmAO Peak GR.12mmHg LVOT Peak Wzismdpz657.2cm/sLVOT VTI15.81cmAO Mean GR.7mmHg VIC (VMAX)1.38mr9KMA (VTI)1.13cm2 Mitral Valve MV E Xkryrdyq534.7cm/sMV DECEL ZEZQ058roJN A Ystwjwdi39.0cm/s MV RUQ85gmR/A ratio1.9MVA (PHT)3.85cm2 TDI E/Lateral E'0.0E/Medial E'0.0 Tricuspid Valve TR Peak Ngrnfuav582hf/sRAP PMXXEDIN74zjOnHA Peak Gr.17mmHg QGYU87nmAh LEFT VENTRICLE The left ventricle is normal size. There is normal left ventricular wall thickness. The left ventricular systolic function is normal. The estimated ejection fraction is 55-60% No regional wall motion abnormalities noted.. The left ventricular diastolic function assessment is inconclusive. No left ventricle thrombus noted on this study. There is no ventricular septal defect visualized. There is no left ventricular aneurysm. There is no mass noted in the left ventricle. RIGHT VENTRICLE The right ventricle is normal size. There is normal right ventricular wall thickness. The right ventricular systolic function is normal. ATRIA The left atrium is moderately dilated. The right atrium size is normal. The interatrial septum is intact with no evidence for an atrial septal defect. AORTIC VALVE The aortic valve is normal in structure. No aortic regurgitation is present. There is no aortic valvular stenosis. There is no aortic valvular vegetation. MITRAL VALVE The mitral valve is normal in structure. There is no evidence of mitral valve prolapse. There is no mitral valve stenosis. There is mild mitral valve regurgitation noted. TRICUSPID VALVE The tricuspid valve is normal in structure. There is mild tricuspid valve regurgitation noted. RVSP is calculated at 23 mm Hg. There is no tricuspid valve prolapse or vegetation. There is no tricuspid valve stenosis. PULMONIC VALVE The pulmonary valve is normal in structure. There is no pulmonic valvular regurgitation. There is no pulmonic valvular stenosis. GREAT VESSELS The aortic root is normal in size. The ascending aorta is normal in size. The pulmonary artery is normal. The IVC is normal in size and collapses >50% with inspiration. PERICARDIAL EFFUSION There is no pericardial effusion. There is no pleural effusion. <Conclusion> The estimated ejection fraction is 55-60% The left ventricular diastolic function assessment is inconclusive. The left atrium is moderately dilated. There is mild mitral valve regurgitation noted. There is mild tricuspid valve regurgitation noted. RVSP is calculated at 23 mm Hg.
[2019-02-28 12:06] LABS: HEMOGLOBIN 10.1 g/dL (12.0-18.0); MEAN CELL VOLUME 99.9 fl (80.0-94.0); MEAN CORPUSCULAR HEMOGLOBIN 33.6 pg (27.0-31.0); MEAN CORPUSCULAR HGB CONC 33.6 g/dL (33.0-37.0); RED CELL DISTRIBUTION WIDTH 14.6 % (11.5-14.5); WHITE BLOOD COUNT 3.3 K/uL (4.8-10.8)
[2019-02-28 12:59] LABS: HEPATITIS B SURFACE AG Negative (NEGATIVE)
[2019-02-28 13:05] LABS: HEPATITIS A IGM NEGATIVE (NEGATIVE); HEPATITIS B CORE AB NEGATIVE (NEGATIVE)
[2019-02-28 13:16] LABS: HEPATITIS C ANTIBODY NEGATIVE (NEGATIVE)
--- NOTE | 2019-02-28 15:45 | CP.PCM.CON ---
History of Present Illness - History of Present Illness History of Present Illness: ASKED TO SEE PT FOR NEW ONSET AFIB. BY DR NG. 38 YO MALE ADMITTED for evaluation for tremors and agitation. ON ADMISSION PT NOTED TO HAVE RAPID SVT. EKG REVEALS AFLUTTER WITH VARIABLE CONDUCTION. PT HAD SEVERE ELECTROLYTE ABN. PT GIVEN REPLETION AND IS NOW IN SR WITH FREQUENT PACS. He denies any palpitation, dizziness, MORAN, blurry vision , fever, chills, respiratory symptoms, urinary symptoms or changes in bowel movement. Denies any weight gain or loss, hot or cold intolerance Denies being depressed , denies visual or auditory hallucinations. Past Patient History - Past Medical History & Family History Past Medical History?: Yes - Past Social History Smoking Status: Former Smoker - CARDIAC Hx Cardiac Disorders: Yes Hx Hypertension: Yes - PULMONARY Hx Respiratory Disorders: No - NEUROLOGICAL Hx Neurological Disorder: No - HEENT Hx HEENT Problems: No - RENAL Hx Chronic Kidney Disease: No - ENDOCRINE/METABOLIC Hx Endocrine Disorders: No - HEMATOLOGICAL/ONCOLOGICAL Hx Blood Disorders: Yes Hx Anemia: Yes Hx Human Immunodeficiency Virus (HIV): Yes - INTEGUMENTARY Hx Dermatological Problems: No - MUSCULOSKELETAL/RHEUMATOLOGICAL Hx Musculoskeletal Disorders: No Hx Falls: No - GASTROINTESTINAL Hx Gastrointestinal Disorders: No - GENITOURINARY/GYNECOLOGICAL Hx Genitourinary Disorders: No - PSYCHIATRIC Hx Anxiety: Yes Hx Substance Use: Yes - SURGICAL HISTORY Hx Surgeries: No - ANESTHESIA Hx Anesthesia: No Meds Home Medications: Home Medication List Medication Instructions Recorded Confirmed Type Famotidine [Pepcid] 40 mg PO DAILY #10 tab 02/28/19 Rx Lisinopril [Zestril] 10 mg PO DAILY tab 02/28/19 Rx Metoprolol Tartrate [Lopressor] 25 mg PO BID #60 tab 02/28/19 Rx Allergies/Adverse Reactions: Allergies Allergy/AdvReac Type Severity Reaction Status Date / Time No Known Allergies Allergy Verified 02/27/19 15:48 - Medications Medications: Current Medications Folic Acid (Folic Acid) 1 mg PO DAILY TREY Dextrose/Sodium Chloride (Dextrose 5%-0.9% Ns 500 Ml) 500 mls @ 500 mls/hr IV .Q1H TREY Stop: 02/28/19 18:18 Last Admin: 02/27/19 20:16 Dose: Not Given Sodium Chloride (Sodium Chloride 0.9%) 1,000 mls @ 150 mls/hr IV .Q6H40M [facility] Last Admin: 02/28/19 02:05 Dose: 150 mls/hr Diltiazem HCl 125 mg/ Sodium (Chloride) 125 mls @ 5 mls/hr IV .Q24H ONE; Protocol Stop: 02/28/19 20:53 Last Admin: 02/27/19 22:21 Dose: 5 mg/hr, 5 mls/hr Lisinopril (Zestril) 10 mg PO DAILY [facility] Lorazepam (Ativan) 1 mg IVP Q4 PRN PRN Reason: Symptoms of alcohol withdrawl Lorazepam (Ativan) 2 mg PO Q6 [facility] Last Admin: 02/28/19 08:59 Dose: 2 mg Metoprolol Tartrate (Lopressor) 25 mg PO BID [facility] Last Admin: 02/28/19 08:56 Dose: 25 mg Multivitamins/Minerals (Therapeutic-M Tab) 1 tab PO DAILY [facility] Ondansetron HCl (Zofran Inj) 4 mg IVP Q6 PRN PRN Reason: Nausea/Vomiting Pantoprazole Sodium (Protonix Ec Tab) 40 mg PO DAILY [facility] Last Admin: 02/28/19 08:56 Dose: 40 mg Potassium Chloride (Potassium Chloride Oral Soln) 40 meq PO Q6 [facility] Stop: 02/28/19 22:01 Thiamine HCl (Vitamin B1 Tab) 100 mg PO DAILY [facility] Results - Vital Signs Recent Vital Signs: Last Vital Signs Temp 98.8 F 02/28/19 12:26 Pulse 87 02/28/19 12:26 Resp 18 02/28/19 12:26 BP 101/67 02/28/19 12:26 Pulse Ox 98 02/28/19 12:26 - Labs Result Diagrams: 02/28/19 11:45 02/28/19 05:15 Labs: Laboratory Results - last 24 hr 02/27/19 02/27/19 02/27/19 17:33 17:33 23:30 WBC 5.7 RBC 3.29 L Hgb 10.9 L D Hct 33.1 L MCV 100.5 H D MCH 33.3 H MCHC 33.1 RDW 14.9 H Plt Count 31 L D Manual Plt Count MPV 9.5 Neut % (Auto) 90.6 H Lymph % (Auto) 5.5 L [place] % (Auto) 3.8 Eos % (Auto) 0.0 Baso % (Auto) 0.1 Neut # (Auto) 5.2 Lymph # (Auto) 0.3 L [place] # (Auto) 0.2 Eos # (Auto) 0.0 Baso # (Auto) 0.0 Neutrophils % (Manual) 89 H Band Neutrophils % 3 H Lymphocytes % (Manual) 6 L Monocytes % (Manual) 2 Platelet Estimate Markedly decreased L Large Platelets Present Giant Platelets Present Hypochromasia (manual) Slight Anisocytosis (manual) Slight Stomatocytes Slight Sodium 132 Potassium 3.4 L Chloride 90 L Carbon Dioxide 19 L Anion Gap 26 H BUN 6 L Creatinine 1.0 Est GFR ( Amer) > 60 Est GFR (Non-Af Amer) > 60 Random Glucose 228 H Calcium 8.2 L Phosphorus Magnesium 0.8 L* D Total Bilirubin 3.3 H AST 1265 H ALT 409 H D Alkaline Phosphatase 108 Ammonia Troponin I 0.0210 0.0310 Total Protein 8.6 H Albumin 4.4 Globulin 4.3 H Albumin/Globulin Ratio 1.0 Triglycerides Cholesterol LDL Cholesterol Direct HDL Cholesterol Lipase 264 TSH 3rd Generation Acetaminophen Alcohol, Quantitative < 10 Hepatitis A IgM Ab Hep Bs Antigen Hep B Core IgM Ab Hepatitis C Antibody 02/28/19 02/28/19 02/28/19 05:15 05:15 05:15 WBC 3.4 L RBC 3.19 L Hgb 10.7 L Hct 31.9 L MCV 100.2 H MCH 33.5 H MCHC 33.5 RDW 14.5 Plt Count 19 L* D Manual Plt Count MPV 9.1 Neut % (Auto) 80.3 H Lymph % (Auto) 13.7 L [place] % (Auto) 5.7 Eos % (Auto) 0.1 Baso % (Auto) 0.2 Neut # (Auto) 2.7 Lymph # (Auto) 0.5 L [place] # (Auto) 0.2 Eos # (Auto) 0.0 Baso # (Auto) 0.0 Neutrophils % (Manual) Band Neutrophils % Lymphocytes % (Manual) Monocytes % (Manual) Platelet Estimate Large Platelets Giant Platelets Hypochromasia (manual) Anisocytosis (manual) Stomatocytes Sodium 134 Potassium 3.2 L Chloride 93 L Carbon Dioxide 27 Anion Gap 17 BUN 6 L Creatinine 0.8 Est GFR ( Amer) > 60 Est GFR (Non-Af Amer) > 60 Random Glucose 134 H Calcium 7.8 L Phosphorus 0.9 L* Magnesium 1.7 Total Bilirubin 3.1 H AST 927 H D ALT 328 H Alkaline Phosphatase 94 Ammonia Troponin I Total Protein 7.8 Albumin 3.9 Globulin 3.9 Albumin/Globulin Ratio 1.0 Triglycerides 107 D Cholesterol 120 LDL Cholesterol Direct 78 HDL Cholesterol 17 L Lipase TSH 3rd Generation 2.83 Acetaminophen Alcohol, Quantitative Hepatitis A IgM Ab Negative Hep Bs Antigen Negative Hep B Core IgM Ab Negative Hepatitis C Antibody Negative 02/28/19 02/28/19 02/28/19 05:15 05:15 11:36 WBC RBC Hgb Hct MCV MCH MCHC RDW Plt Count Manual Plt Count MPV Neut % (Auto) Lymph % (Auto) [place] % (Auto) Eos % (Auto) Baso % (Auto) Neut # (Auto) Lymph # (Auto) [place] # (Auto) Eos # (Auto) Baso # (Auto) Neutrophils % (Manual) Band Neutrophils % Lymphocytes % (Manual) Monocytes % (Manual) Platelet Estimate Large Platelets Giant Platelets Hypochromasia (manual) Anisocytosis (manual) Stomatocytes Sodium Potassium Chloride Carbon Dioxide Anion Gap BUN Creatinine Est GFR ( Amer) Est GFR (Non-Af Amer) Random Glucose Calcium Phosphorus 1.0 L* Magnesium 1.7 Total Bilirubin AST ALT Alkaline Phosphatase Ammonia 34 H Troponin I Total Protein Albumin Globulin Albumin/Globulin Ratio Triglycerides Cholesterol LDL Cholesterol Direct HDL Cholesterol Lipase TSH 3rd Generation Acetaminophen < 10.0 L Alcohol, Quantitative Hepatitis A IgM Ab Hep Bs Antigen Hep B Core IgM Ab Hepatitis C Antibody 02/28/19 02/28/19 11:45 11:45 WBC 3.3 L RBC 3.00 L Hgb 10.1 L Hct 30.0 L MCV 99.9 H MCH 33.6 H MCHC 33.6 RDW 14.6 H Plt Count 20 L* Manual Plt Count 18 L* MPV Neut % (Auto) Lymph % (Auto) [place] % (Auto) Eos % (Auto) Baso % (Auto) Neut # (Auto) Lymph # (Auto) [place] # (Auto) Eos # (Auto) Baso # (Auto) Neutrophils % (Manual) Band Neutrophils % Lymphocytes % (Manual) Monocytes % (Manual) Platelet Estimate Large Platelets Giant Platelets Hypochromasia (manual) Anisocytosis (manual) Stomatocytes Sodium Potassium Chloride Carbon Dioxide Anion Gap BUN Creatinine Est GFR ( Amer) Est GFR (Non-Af Amer) Random Glucose Calcium Phosphorus Magnesium Total Bilirubin AST ALT Alkaline Phosphatase Ammonia Troponin I Total Protein Albumin Globulin Albumin/Globulin Ratio Triglycerides Cholesterol LDL Cholesterol Direct HDL Cholesterol Lipase TSH 3rd Generation Acetaminophen Alcohol, Quantitative Hepatitis A IgM Ab Hep Bs Antigen Hep B Core IgM Ab Hepatitis C Antibody Assessment & Plan (1) Atrial flutter Status: Acute (2) Alcohol withdrawal Status: Acute (3) Atrial fibrillation with rapid ventricular response Status: Acute (4) Hypomagnesemia Status: Acute (5) Hypokalemia Status: Acute (6) Alcohol abuse Status: Chronic - Assessment and Plan (Free Text) Plan: REPLEAT LYTES AFLUTTER IS LIKELY DUE TO SEVERE METABOLIC ABN. ECHO ORDERED PT DENIES HX OF PRIOR ARRYTHMIA WOULD AVOID TREATING PT WITH ANTICOAG OR ASA FOR SEVERAL REASONS - THROMBOCYTOPENIA, RISK OF FALL FROM ETOH ABUSE, AND UNRELIABLE FOR FU OUTPT. I ADVISED PT TO MONITOR FOR PALP OR LH AND TO DC ETOH USE. MAY STOP CARDIZEM 45 MIN TOTAL CARE TIME
--- NOTE | 2019-02-28 15:45 | CP.PCM.PN ---
Subjective - Date & Time of Evaluation Date of Evaluation: 02/28/19 Time of Evaluation: 09:40 - Subjective Subjective: Patient seen and examined at bedside. Denies any complaints. Reports he wants to go home and feed his cat. No acute overnight events. Telemonitor demonstrates conversion of Atrial fibrillation to NSR. Hemodynamically stable. Objective - Vital Signs/Intake and Output Vital Signs (last 24 hours): Temp Pulse Resp BP Pulse Ox 98.8 F 87 18 101/67 98 02/28/19 12:26 02/28/19 12:26 02/28/19 12:26 02/28/19 12:26 02/28/19 12:26 Intake and Output: 02/28/19 02/28/19 06:59 18:59 Intake Total 2039 Output Total Balance 2038 - Medications Medications: Current Medications Folic Acid (Folic Acid) 1 mg PO DAILY [facility] Dextrose/Sodium Chloride (Dextrose 5%-0.9% Ns 500 Ml) 500 mls @ 500 mls/hr IV .Q1H [facility] Stop: 02/28/19 18:18 Last Admin: 02/27/19 20:16 Dose: Not Given Sodium Chloride (Sodium Chloride 0.9%) 1,000 mls @ 150 mls/hr IV .Q6H40M [facility] Last Admin: 02/28/19 02:05 Dose: 150 mls/hr Diltiazem HCl 125 mg/ Sodium (Chloride) 125 mls @ 5 mls/hr IV .Q24H ONE; Protocol Stop: 02/28/19 20:53 Last Admin: 02/27/19 22:21 Dose: 5 mg/hr, 5 mls/hr Lisinopril (Zestril) 10 mg PO DAILY [facility] Lorazepam (Ativan) 1 mg IVP Q4 PRN PRN Reason: Symptoms of alcohol withdrawl Lorazepam (Ativan) 2 mg PO Q6 [facility] Last Admin: 02/28/19 08:59 Dose: 2 mg Metoprolol Tartrate (Lopressor) 25 mg PO BID [facility] Last Admin: 02/28/19 08:56 Dose: 25 mg Multivitamins/Minerals (Therapeutic-M Tab) 1 tab PO DAILY [facility] Ondansetron HCl (Zofran Inj) 4 mg IVP Q6 PRN PRN Reason: Nausea/Vomiting Pantoprazole Sodium (Protonix Ec Tab) 40 mg PO DAILY [facility] Last Admin: 02/28/19 08:56 Dose: 40 mg Potassium Chloride (Potassium Chloride Oral Soln) 40 meq PO Q6 [facility] Stop: 02/28/19 22:01 Thiamine HCl (Vitamin B1 Tab) 100 mg PO DAILY [facility] - Labs Labs: 02/28/19 11:45 02/28/19 05:15 - Constitutional Appears: No Acute Distress - Eye Exam Eye Exam: Normal appearance - ENT Exam ENT Exam: Mucous Membranes Moist - Respiratory Exam Respiratory Exam: Clear to Ausculation Bilateral, NORMAL BREATHING PATTERN. absent: Accessory Muscle Use, Chest Wall Tenderness, Decreased Breath Sounds, Prolonged Expiratory Phase, Rales, Rhonchi, Wheezes, Respiratory Distress, Stridor - Cardiovascular Exam Cardiovascular Exam: REGULAR RHYTHM, +S1, +S2 - GI/Abdominal Exam GI & Abdominal Exam: Soft, Normal Bowel Sounds. absent: Distended, Firm, Guarding, Rigid, Tenderness, Rebound - Extremities Exam Extremities Exam: Normal Capillary Refill, Normal Inspection. absent: Pedal Edema, Tenderness - Neurological Exam Neurological Exam: Alert, Awake, Oriented x3 - Skin Skin Exam: Dry, Intact, Warm Additional comments: Ecchymosis noted on bilateral arms.
[2019-02-28 15:55] VITALS: BP 111/76; PULSE 83; TEMP 97.9; O2SAT 97
[2019-02-28] MEDS ORDERED: Potassium Chloride 20 mEq/15 ml LIQ UD PO SCH (16:00)
--- NOTE | 2019-02-28 17:12 | CP.PCM.DIS ---
<Bijal Avelar - Last Filed: 02/28/19 17:10> Provider - Provider Date of Admission: 02/27/19 18:17 Attending physician: Latonia Patterson MD Consults: 02/27/19 20:57 Cardiology Consult Routine Comment: Consulting Provider: Kaden Bynum Consulting Physician: Kaden Bynum Reason for Consult: Afib with RVR 02/28/19 10:00 Pastoral Care Referral Routine Comment: Physician Instructions: Reason For Exam: as per admission Social Work Referral Routine Comment: patient in withdrawal Physician Instructions: Reason For Exam: Alcoholism 02/28/19 14:23 Hematology Oncology Consult Routine Comment: Consulting Provider: Erik Field Consulting Physician: Erik Field Reason for Consult: Thrombocytopenia Time Spent in preparation of Discharge (in minutes): 30 Diagnosis - Discharge Diagnosis (1) HIV (human immunodeficiency virus infection) Status: Acute (2) Atrial fibrillation with rapid ventricular response Status: Acute Hospital Course - Lab Results Lab Results: Most Recent Lab Values WBC 3.3 K/uL (4.8-10.8) L 02/28/19 11:45 RBC 3.00 Mil/uL (4.40-5.90) L 02/28/19 11:45 Hgb 10.1 g/dL (12.0-18.0) L 02/28/19 11:45 Hct 30.0 % (35.0-51.0) L 02/28/19 11:45 MCV 99.9 fl (80.0-94.0) H 02/28/19 11:45 MCH 33.6 pg (27.0-31.0) H 02/28/19 11:45 MCHC 33.6 g/dL (33.0-37.0) 02/28/19 11:45 RDW 14.6 % (11.5-14.5) H 02/28/19 11:45 Plt Count 20 K/uL (130-400) L* 02/28/19 11:45 Manual Plt Count 18 K/uL (130-400) L* 02/28/19 11:45 MPV 9.1 fl (7.2-11.7) 02/28/19 05:15 Neut % (Auto) 80.3 % (50.0-75.0) H 02/28/19 05:15 Lymph % (Auto) 13.7 % (20.0-40.0) L 02/28/19 05:15 Webb % (Auto) 5.7 % (0.0-10.0) 02/28/19 05:15 Eos % (Auto) 0.1 % (0.0-4.0) 02/28/19 05:15 Baso % (Auto) 0.2 % (0.0-2.0) 02/28/19 05:15 Neut # (Auto) 2.7 K/uL (1.8-7.0) 02/28/19 05:15 Lymph # (Auto) 0.5 K/uL (1.0-4.3) L 02/28/19 05:15 Webb # (Auto) 0.2 K/uL (0.0-0.8) 02/28/19 05:15 Eos # (Auto) 0.0 K/uL (0.0-0.7) 02/28/19 05:15 Baso # (Auto) 0.0 K/uL (0.0-0.2) 02/28/19 05:15 Neutrophils % (Manual) 89 % (42-75) H 02/27/19 17:33 Band Neutrophils % 3 % (0-2) H 02/27/19 17:33 Lymphocytes % (Manual) 6 % (20-50) L 02/27/19 17:33 Monocytes % (Manual) 2 % (0-10) 02/27/19 17:33 Platelet Estimate Markedly decreased (NORMAL) L 02/27/19 17:33 Large Platelets Present 02/27/19 17:33 Giant Platelets Present 02/27/19 17:33 Hypochromasia (manual) Slight 02/27/19 17:33 Anisocytosis (manual) Slight 02/27/19 17:33 Stomatocytes Slight 02/27/19 17:33 Sodium 134 mmol/l (132-148) 02/28/19 05:15 Potassium 3.2 MMOL/L (3.6-5.0) L 02/28/19 05:15 Chloride 93 mmol/L (98-107) L 02/28/19 05:15 Carbon Dioxide 27 mmol/L (22-30) 02/28/19 05:15 Anion Gap 17 (10-20) 02/28/19 05:15 BUN 6 mg/dl (9-20) L 02/28/19 05:15 Creatinine 0.8 mg/dl (0.8-1.5) 02/28/19 05:15 Est GFR ( Amer) > 60 02/28/19 05:15 Est GFR (Non-Af Amer) > 60 02/28/19 05:15 Random Glucose 134 mg/dL (75-110) H 02/28/19 05:15 Calcium 7.8 mg/dL (8.4-10.2) L 02/28/19 05:15 Phosphorus 1.0 mg/dl (2.5-4.5) L* 02/28/19 11:36 Magnesium 1.7 MG/DL (1.6-2.3) 02/28/19 11:36 Total Bilirubin 3.1 mg/dl (0.2-1.3) H 02/28/19 05:15 AST 927 U/L (17-59) H D 02/28/19 05:15 ALT 328 U/L (21-72) H 02/28/19 05:15 Alkaline Phosphatase 94 U/L (38-126) 02/28/19 05:15 Ammonia 34 umol/L (9-33) H 02/28/19 05:15 Troponin I 0.0310 ng/mL (0.00-0.120) 02/27/19 23:30 Total Protein 7.8 G/DL (6.3-8.2) 02/28/19 05:15 Albumin 3.9 g/dL (3.5-5.0) 02/28/19 05:15 Globulin 3.9 gm/dL (2.2-3.9) 02/28/19 05:15 Albumin/Globulin Ratio 1.0 (1.0-2.1) 02/28/19 05:15 Triglycerides 107 mg/DL (0-149) D 02/28/19 05:15 Cholesterol 120 mg/dL (0-199) 02/28/19 05:15 LDL Cholesterol Direct 78 mg/dL (0-129) 02/28/19 05:15 HDL Cholesterol 17 MG/DL (30-70) L 02/28/19 05:15 Lipase 264 U/L (23-300) 02/27/19 17:33 TSH 3rd Generation 2.83 mIU/ML (0.46-4.68) 02/28/19 05:15 Acetaminophen < 10.0 ug/ml (10.0-30.0) L 02/28/19 05:15 Alcohol, Quantitative < 10 mg/dl (0-10) 02/27/19 17:33 Hepatitis A IgM Ab Negative (NEGATIVE) 02/28/19 05:15 Hep Bs Antigen Negative (NEGATIVE) 02/28/19 05:15 Hep B Core IgM Ab Negative (NEGATIVE) 02/28/19 05:15 Hepatitis C Antibody Negative (NEGATIVE) 02/28/19 05:15 Discharge Exam - Head Exam Head Exam: ATRAUMATIC, NORMOCEPHALIC Discharge Plan - Discharge Medications Prescriptions: Famotidine [Pepcid] 40 mg PO DAILY #10 tab RX: Metoprolol Tartrate [Lopressor] 25 mg PO BID #60 tab RX: Thiamine [Vitamin B1 Tab] 100 mg PO DAILY #30 tab - Follow Up Plan Condition: FAIR Disposition: HOME/ ROUTINE <Elizabeth Kirkpatrick - Last Filed: 02/28/19 17:56> Provider - Provider Date of Admission: 02/27/19 18:17 Attending physician: Latonia Patterson MD Consults: 02/27/19 20:57 Cardiology Consult Routine Comment: Consulting Provider: Kaden Bynum Consulting Physician: Kaden Bynum Reason for Consult: Afib with RVR 02/28/19 10:00 Pastoral Care Referral Routine Comment: Physician Instructions: Reason For Exam: as per admission Social Work Referral Routine Comment: patient in withdrawal Physician Instructions: Reason For Exam: Alcoholism 02/28/19 14:23 Hematology Oncology Consult Routine Comment: Consulting Provider: Erik Field Consulting Physician: Erik Field Reason for Consult: Thrombocytopenia Hospital Course - Lab Results Lab Results: Most Recent Lab Values WBC 3.3 K/uL (4.8-10.8) L 02/28/19 11:45 RBC 3.00 Mil/uL (4.40-5.90) L 02/28/19 11:45 Hgb 10.1 g/dL (12.0-18.0) L 02/28/19 11:45 Hct 30.0 % (35.0-51.0) L 02/28/19 11:45 MCV 99.9 fl (80.0-94.0) H 02/28/19 11:45 MCH 33.6 pg (27.0-31.0) H 02/28/19 11:45 MCHC 33.6 g/dL (33.0-37.0) 02/28/19 11:45 RDW 14.6 % (11.5-14.5) H 02/28/19 11:45 Plt Count 20 K/uL (130-400) L* 02/28/19 11:45 Manual Plt Count 18 K/uL (130-400) L* 02/28/19 11:45 MPV 9.1 fl (7.2-11.7) 02/28/19 05:15 Neut % (Auto) 80.3 % (50.0-75.0) H 02/28/19 05:15 Lymph % (Auto) 13.7 % (20.0-40.0) L 02/28/19 05:15 Webb % (Auto) 5.7 % (0.0-10.0) 02/28/19 05:15 Eos % (Auto) 0.1 % (0.0-4.0) 02/28/19 05:15 Baso % (Auto) 0.2 % (0.0-2.0) 02/28/19 05:15 Neut # (Auto) 2.7 K/uL (1.8-7.0) 02/28/19 05:15 Lymph # (Auto) 0.5 K/uL (1.0-4.3) L 02/28/19 05:15 Webb # (Auto) 0.2 K/uL (0.0-0.8) 02/28/19 05:15 Eos # (Auto) 0.0 K/uL (0.0-0.7) 02/28/19 05:15 Baso # (Auto) 0.0 K/uL (0.0-0.2) 02/28/19 05:15 Neutrophils % (Manual) 89 % (42-75) H 02/27/19 17:33 Band Neutrophils % 3 % (0-2) H 02/27/19 17:33 Lymphocytes % (Manual) 6 % (20-50) L 02/27/19 17:33 Monocytes % (Manual) 2 % (0-10) 02/27/19 17:33 Platelet Estimate Markedly decreased (NORMAL) L 02/27/19 17:33 Large Platelets Present 02/27/19 17:33 Giant Platelets Present 02/27/19 17:33 Hypochromasia (manual) Slight 02/27/19 17:33 Anisocytosis (manual) Slight 02/27/19 17:33 Stomatocytes Slight 02/27/19 17:33 Sodium 134 mmol/l (132-148) 02/28/19 05:15 Potassium 3.2 MMOL/L (3.6-5.0) L 02/28/19 05:15 Chloride 93 mmol/L (98-107) L 02/28/19 05:15 Carbon Dioxide 27 mmol/L (22-30) 02/28/19 05:15 Anion Gap 17 (10-20) 02/28/19 05:15 BUN 6 mg/dl (9-20) L 02/28/19 05:15 Creatinine 0.8 mg/dl (0.8-1.5) 02/28/19 05:15 Est GFR ( Amer) > 60 02/28/19 05:15 Est GFR (Non-Af Amer) > 60 02/28/19 05:15 Random Glucose 134 mg/dL (75-110) H 02/28/19 05:15 Calcium 7.8 mg/dL (8.4-10.2) L 02/28/19 05:15 Phosphorus 1.0 mg/dl (2.5-4.5) L* 02/28/19 11:36 Magnesium 1.7 MG/DL (1.6-2.3) 02/28/19 11:36 Total Bilirubin 3.1 mg/dl (0.2-1.3) H 02/28/19 05:15 AST 927 U/L (17-59) H D 02/28/19 05:15 ALT 328 U/L (21-72) H 02/28/19 05:15 Alkaline Phosphatase 94 U/L (38-126) 02/28/19 05:15 Ammonia 34 umol/L (9-33) H 02/28/19 05:15 Troponin I 0.0310 ng/mL (0.00-0.120) 02/27/19 23:30 Total Protein 7.8 G/DL (6.3-8.2) 02/28/19 05:15 Albumin 3.9 g/dL (3.5-5.0) 02/28/19 05:15 Globulin 3.9 gm/dL (2.2-3.9) 02/28/19 05:15 Albumin/Globulin Ratio 1.0 (1.0-2.1) 02/28/19 05:15 Triglycerides 107 mg/DL (0-149) D 02/28/19 05:15 Cholesterol 120 mg/dL (0-199) 02/28/19 05:15 LDL Cholesterol Direct 78 mg/dL (0-129) 02/28/19 05:15 HDL Cholesterol 17 MG/DL (30-70) L 02/28/19 05:15 Lipase 264 U/L (23-300) 02/27/19 17:33 TSH 3rd Generation 2.83 mIU/ML (0.46-4.68) 02/28/19 05:15 Acetaminophen < 10.0 ug/ml (10.0-30.0) L 02/28/19 05:15 Alcohol, Quantitative < 10 mg/dl (0-10) 02/27/19 17:33 Hepatitis A IgM Ab Negative (NEGATIVE) 02/28/19 05:15 Hep Bs Antigen Negative (NEGATIVE) 02/28/19 05:15 Hep B Core IgM Ab Negative (NEGATIVE) 02/28/19 05:15 Hepatitis C Antibody Negative (NEGATIVE) 02/28/19 05:15 Attending/Attestation - Attestation I have personally seen and examined this patient.: Yes I have fully participated in the care of the patient.: Yes I have reviewed all pertinent clinical information, including history, physical exam and plan: Yes Notes (Text): Pt signed against medical advice. 1. New Onset Afib/Flutter with RVR likely due to Electrolyte Abnormality resolved and now SR and rate controlled after Cardizem drip started on PO Metoprolol electrolyte abn replaced Cardio consulted- discussed case with Dr Bynum 2.Alcoholism/ ETOH withdrawal/ Impending DT-s Started Ativan 2 mg PO Q6 hours NO Librium due to elevated LFT-s MVI/Thiamine . Folic Acid IVF hydration will d/c home on PO Ativan tapering dose 3. Dehydration IVF hydration 4. Hypomagnesemia / hypokalemia replaced with IV MgSo4, KCl and Kphos 5. HTN started Metoprolol 6. HIV asymptomatic viral load undetected stressed need for compliance with antiretroviral - pt has meds and will take his med today ( med not available in pharmacy) appt [facility] 7. Alcoholic liver disease [place] 3.3 ASt/ ALT 1265/ 407 Check PT/ INR Hepatitis panel Liver US Send ammonia level Pending results - pt signed AMA - will ff up in [facility] 8. thrombocytopenia likely due to ETOH , abn LFTs chronic secondary to ETOh abuse no bleeding refused to stay in the hospital and be monitored Hematology consulted- pt refused to wait for Hematology 9. DVT prophylaxis SCD No anticoagulation due to thrombocytopenia
== END 2019-02-28 18:12 | disposition left against medical advice (07) ==
LOC: H.ER 15:16 → H.ERHOLD 18:17 → INTOOBSV 18:17 → H.TEL 20:44
PROVIDERS: ADMIT Hospitalist; ATTEND Hospitalist
DX: I48.91 Unspecified atrial fibrillation (principal); I47.1 Supraventricular tachycardia; I48.92 Unspecified atrial flutter; I10 Essential (primary) hypertension; Z21 Asymptomatic human immunodeficiency virus [HIV] infection status; D64.9 Anemia, unspecified; D69.59 Other secondary thrombocytopenia; E83.42 Hypomagnesemia; E86.0 Dehydration; E87.6 Hypokalemia; F10.239 Alcohol dependence with withdrawal, unspecified; F41.9 Anxiety disorder, unspecified; K70.9 Alcoholic liver disease, unspecified; K76.0 Fatty (change of) liver, not elsewhere classified; Z79.899 Other long term (current) drug therapy; Z87.891 Personal history of nicotine dependence; Z91.14 Patient's other noncompliance with medication regimen
CPT/HCPCS: 36415; 71045; 71046; 80053; 80061; 80074; 80320; 80329; 82140; 83690; 83735; 84100; 84443; 84484; 85025; 85027; 93005; 93306; 96372; 96374; 96375; 96376; 99285; G0378; J2060; J3411; J7030